=== PATIENT | female | born 1995 | race Caucasian/White ===

== ENCOUNTER → 2021-09-20 | Outpatient (CLI) | payer OTHER ==
--- NOTE | 2021-09-21 07:33 | US ---
EXAMINATION TYPE: US pelvic complete DATE OF EXAM: 09/20/2021 COMPARISON: NONE CLINICAL HISTORY: N91.2 AMENORRHEA. amenorrhea TECHNIQUE: Transabdominal (TA). Date of LMP: 7 months ago EXAM MEASUREMENTS: Uterus: 5.4 x 2.7 x 3.6 cm Endometrial Stripe: 0.7 cm Right Ovary: 2.9 x 1.9 x 1.5 cm Left Ovary: 2.8 x 1.8 x 2.0 cm 1. Uterus: Anteverted appears wnl 2. Endometrium: appears wnl 3. Right Ovary: follicles noted 4. Left Ovary: follicles noted 5. Bilateral Adnexa: wnl 6. Posterior cul-de-sac: wnl Anteverted uterus. Endometrium slightly thinned for secretory phase of menstrual cycle. Suboptimal st udy as transvaginal investigation not performed to better evaluate. IMPRESSION: As above.
== END | disposition home or self-care (01) ==
LOC: RADUSWWP 16:09
PROVIDERS: ATTEND Family Medicine
DX: N85.4 Malposition of uterus (principal); N91.2 Amenorrhea, unspecified
CPT/HCPCS: 76856

== ENCOUNTER → 2022-06-05 | Outpatient (CLI) | payer OTHER ==
--- NOTE | 2022-06-05 08:37 | US ---
EXAMINATION TYPE: US renal artery duplex complete DATE OF EXAM: 06/05/2022 COMPARISON: NONE CLINICAL HISTORY: 27-year-old female I10 ESSENTIAL HYPERTENSION. Pt has legal guardian who states [place] ontrolled HTN x many years technique: Multiple sonographic images of the kidneys are obtained. Color Doppler and spectral waveform analysis of the renal arteries. 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 RESISTANCE INDEX Right: 0.6 Left: Unable to obtain RA/AO RATIO (< 3.5 ) Right: 2.3 Left: Unable to obtain RA VELOCITY ( < 180 cm/s) Right: 263.7 Left: Unable to obtain Head Animal Keeper notes:Possible right renal artery stenosis. The left kidney appeared multicystic, large st cyst= 10.6 x 7.5 x 10.6 cm- unable to visualize renal tissue or vasculature to obtain blood flow IMPRESSION: 1. Increased peak systolic velocity right renal artery though with renal artery aortic ratio still be low the diagnostic threshold. Consider further CT or MR angiography assessment. Exam remains equivoca l for renal artery stenosis on the right. 2. 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
== END | disposition home or self-care (01) ==
LOC: RADUSWWP 06:53
PROVIDERS: ATTEND Family Medicine
DX: I70.1 Atherosclerosis of renal artery (principal); N28.1 Cyst of kidney, acquired; I10 Essential (primary) hypertension
CPT/HCPCS: 93975

== ENCOUNTER → 2022-07-10 | Outpatient (CLI) | payer OTHER ==
--- NOTE | 2022-07-10 16:29 | MR ---
MR angiogram of the abdomen with and without contrast HISTORY: R [id number] Multiplanar multisequence and postcontrast images obtained through the abdomen, patient received 10 c c Gadavist IV. Three-dimensional postprocessing was performed on an alternate workstation and reviewe d. Correlation to ultrasound dated 06/05/2022 Aorta shows no aneurysm. Celiac axis, superior mesenteric artery, common iliac, internal and external iliac arteries proximally are within normal limits. There is expected enhancement of the right kidne y, renal artery in the right shows no proximal stenosis. Left kidney is not seen to enhance. There is a diminutive left renal artery which courses in cephalad direction, possible capsular arteries enhan ce on the left. Left kidney is enlarged. IMPRESSION: Nonfunctioning left kidney possibly due to chronic marked hydronephrosis. Consider urolog y consult.
== END | disposition home or self-care (01) ==
LOC: RADMRIMAIN 10:30 → EEVIPCON 10:45
PROVIDERS: ATTEND Family Medicine
DX: R93.422 Abnormal radiologic findings on diagnostic imaging of left kidney (principal)
CPT/HCPCS: C8902; A9585; 74185

== ENCOUNTER → 2022-10-07 | Outpatient (CLI) | payer OTHER ==
[2022-10-07 14:40] LABS: African American GFR (CKD) 97.6 (60.0-200.0); Anion Gap 12.4 mmol/L (10.00-18.00); BUN/Creat Ratio 25.59 Ratio (12.00-20.00); Blood Urea Nitrogen 23.8 mg/dL (9.0-27.0); Calcium 10.3 mg/dL (8.7-10.3); Carbon Dioxide 22.2 mmol/L (20.0-27.5); Non-African American GFR(CKD) 84.2 (60.0-200.0); Potassium 3.5 mmol/L (3.5-5.5)
== END | disposition home or self-care (01) ==
LOC: LABWHC1 09:09
PROVIDERS: ATTEND Internal Medicine
DX: I10 Essential (primary) hypertension (principal)
CPT/HCPCS: 36415; 80048

== ENCOUNTER → 2022-10-30 | Outpatient (CLI) | payer OTHER ==
--- NOTE | 2022-10-30 18:00 | CT ---
EXAMINATION TYPE: CT abdomen pelvis wo/w con DATE OF EXAM: 10/30/2022 COMPARISON: None INDICATION: renal cyst DLP: 2951.2 mGycm, Automated exposure control for dose reduction was used. CONTRAST: 70 mL of Isovue 300. Study performed with Oral Contrast TECHNIQUE: Axial images were obtained from above the diaphragm to the pubic rami in the axial plane a t 5 mm thick sections. Reconstructed images are reviewed on the computer in the coronal plane. FINDINGS: Limited CT sections are obtained the lung bases. The lung bases are clear. CT ABDOMEN: Liver: Normal Spleen: Normal Pancreas: Normal Adrenal glands: The adrenal glands are normal. Gallbladder: Normal Kidneys: Left kidney is largely replaced by a large complex cyst. Very minimal rim of parenchymal tis selena remains present better visualized on the delayed images. Right kidney appears unremarkable withou t masses cyst or hydronephrosis. No hydroureter is evident. Aorta: Normal Inferior vena cava: Normal. CT PELVIS: Loops of bowel within the abdomen and pelvis are normal. There are loops of bowel which are incom pletely distended or lack oral contrast limiting their evaluation. Oral contrast extends to the dista l transverse colon. Appendix: Normal as visualized. Urinary bladder: Normal. Genitourinary structures: Uterus appears unremarkable in the right hemipelvis. Adnexal regions are no rmal. Osseous structures: No suspicious lytic or sclerotic lesions. IMPRESSIONS: 1. Left kidney is largely replaced with cysts with very little parenchymal tissue evident on postcon trast imaging.
== END | disposition home or self-care (01) ==
LOC: RADCTMAIN 11:21
PROVIDERS: ATTEND Internal Medicine
DX: N28.1 Cyst of kidney, acquired (principal); I10 Essential (primary) hypertension
CPT/HCPCS: 74178; Q9967 ×2

== ENCOUNTER → 2023-02-11 | Outpatient (CLI) | payer OTHER ==
--- NOTE | 2023-02-11 10:59 | CT ---
EXAMINATION TYPE: CT angio head DATE OF EXAM: 02/11/2023 COMPARISON: None HISTORY: 27-year-old female I10, headaches TECHNIQUE: Initial noncontrast CT head. Contiguous axial scanning of the head performed with IV Contr ast, patient injected with 100 mL of Isovue 370. Coronal/sagittal reconstructions performed. 3-D steven nstructions generated on a dedicated independent workstation. CT DLP: 1326.5 mGycm Automated exposure control for dose reduction was used. FINDINGS: No evidence for acute intracranial hemorrhage, acute ischemic change, mass, mass effect, midline shif t, or extra-axial fluid collection. No hydrocephalus. No effacement of cerebral sulci or basal subara chnoid cisterns. Boyce-white matter differentiation is maintained. Rightward nasal septal deviation. Paranasal sinuses and mastoid air cells are well pneumatized. Orbit s and globes are intact. After IV contrast administration we note a dominant left vertebral artery. Both vertebral and basilar arteries as well as the remainder of the posterior circulation are patent. The dural venous sinuses are patent. Both internal carotid arteries as well as the remainder of the anterior circulation are patent. IMPRESSION: NO INTRACRANIAL OCCLUSION, SIGNIFICANT STENOSIS, OR ANEURYSMAL CHANGES SEEN. NO ACUTE INTRACRANIAL AB NORMALITY.
== END | disposition home or self-care (01) ==
LOC: RADCTMAIN 08:59
PROVIDERS: ATTEND Internal Medicine
DX: I10 Essential (primary) hypertension (principal); N28.1 Cyst of kidney, acquired
CPT/HCPCS: 70496; Q9967

== ENCOUNTER → 2023-04-08 | Outpatient (CLI) | payer OTHER ==
[2023-04-08 16:33] LABS: Appearance,Urine Clear (Clear); Bilirubin,Urine Negative (Negative); Blood,Urine Negative (Negative); Color,Urine Dark Yellow (Yellow); Ketones,Urine Negative (Negative); Nitrite,Urine Negative (Negative); Specific Gravity,Urine 1.022 (1.001-1.030); Urobilinogen,Urine 0.2 E.U./DL
[2023-04-08 16:41] LABS: Bacteria,Urine 3+ (None Seen)
[2023-04-08 22:40] LABS: Calcium 11.1 mg/dL (8.7-10.3); Carbon Dioxide 26.1 mmol/L (21.6-31.8); Chloride 101 mmol/L (96-109); Glucose 153 mg/dL (70-110); Potassium 5.1 mmol/L (3.5-5.5); Sodium 139 mmol/L (135-145)
== END | disposition home or self-care (01) ==
LOC: LABWHC1 09:10
PROVIDERS: ATTEND Urology
DX: Z01.812 Encounter for preprocedural laboratory examination (principal); N13.30 Unspecified hydronephrosis; R31.29 Other microscopic hematuria
CPT/HCPCS: 36415; 80048; 81001; 85025; 87086

== ENCOUNTER → 2023-04-14 | Outpatient (CLI) | payer OTHER ==
[2023-04-14 16:39] LABS: Basophils # (A) 0.02 X 10*3/uL (0.00-0.10); Basophils % (A) 0.3 %; Eosinophils # (A) 0.16 X 10*3/uL (0.04-0.35); Eosinophils % (A) 2.2 %; HCT 48.7 % (37.2-46.3); Lymphocytes # (A) 2.21 X 10*3/uL (0.90-5.00); Lymphocytes % (A) 30.6 %; MCH 28.9 pg (27.0-32.0); MCHC 32.9 d/dL (32.0-37.0); MCV 87.9 FL (80.0-97.0); Mean Platelet Volume 11.4 FL (9.5-12.2); Monocytes % (A) 5.5 %; NRBC Per 100 WBC 0 X 10*3/uL (0.00-0.01); Neutrophils # (A) 4.41 X 10*3/uL (1.80-7.70); Neutrophils % (A) 61.1 %; Platelet Count 332 X 10*3/uL (140-440); RBC 5.54 X 10*6/uL (4.10-5.20); RDW 11.5 % (11.5-14.5); WBC 7.22 X 10*3/uL (4.50-10.00)
[2023-04-14 16:50] LABS: ALT 35 U/L (8-44); AST 28 U/L (13-35); Albumin 4.8 d/dL (3.8-4.9); Albumin/Globulin Ratio 1.33 Ratio (1.60-3.17); Alkaline Phosphatase 145 U/L (41-126); Blood Urea Nitrogen 22.3 mg/dL (9.0-27.0); Calcium 10.5 mg/dL (8.7-10.3); Carbon Dioxide 23.3 mmol/L (21.6-31.8); Chloride 100 mmol/L (96-109); Chol/HDL Ratio 4.14 Ratio; Globulin 3.6 d/dL (1.6-3.3); Glucose 122 mg/dL (70-110); LDL Cholesterol,Calculated 125.7 mg/dL (0.0-131.0); Potassium 4.4 mmol/L (3.5-5.5); Sodium 137 mmol/L (135-145); Total Bilirubin 0.7 mg/dL (0.3-1.2); Total Protein 8.4 d/dL (6.2-8.2)
== END | disposition home or self-care (01) ==
LOC: LABWHC1 08:25
PROVIDERS: ATTEND Urology
DX: Z01.812 Encounter for preprocedural laboratory examination (principal); I10 Essential (primary) hypertension; E78.2 Mixed hyperlipidemia; E55.9 Vitamin D deficiency, unspecified; N28.1 Cyst of kidney, acquired; R73.03 Prediabetes
CPT/HCPCS: 36415; 80053; 80061; 83036; 84443; 85025; 93005

== ENCOUNTER 2023-04-17 07:19 | Observation (INO) | payer OTHER ==
[2023-04-11 09:14] VITALS: BMI 38.2
[~2023-04-17 07:19] MED LIST: DEXAMETHASONE SOD PHOSPHATE 4 MG/ML 1 ML VIAL IV ONE; LIDOCAINE 1% (10MG/ML) FOR IV START INTRADERMA PRN; MIDAZOLAM 2 MG/2 ML VIAL IV PRN; ONDANSETRON 4 MG/2 ML VIAL IVP ONE
[2023-04-17] MEDS ORDERED: SCOPOLAMINE 1 MG/72 HR PATCH TRANSDERM ONE (08:15)
[2023-04-17 08:16] LABS: Glucose,Whole Blood 125 mg/dL (70-110)
[2023-04-17] MEDS ORDERED: MIDAZOLAM 2 MG/2 ML VIAL IVP ONE (08:37)
[2023-04-17] MEDS ORDERED: fentaNYL (PF) 50 MCG/1 ML VIAL IVP ONE (08:37)
--- NOTE | 2023-04-17 08:47 | P.ANPRN ---
Procedure Note - Anesthesia - Nerve Block Performed Bilateral Erector Spinae Single Time Out Performed: Yes Date of Procedure: 04/17/23 Procedure Start Time: 08:35 Procedure Stop Time: 08:46 Location of Patient: PreOp Indication: Acute Post-Operative Pain Sedation Type: Sedate with meaningful contact maintained Preparation: Sterile Prep Position: Sitting Needle Types: Pajunk Needle Gauge: 20 Ultrasound used to visualize needle placement: Yes Ultrasound used to observe medication spread: Yes Injectate: Other (see comment) (0.25% Ropivicaine 12 ml left, 12 ml right) Blood Aspirated: No Pain Paresthesia on Injection Noted: No Resistance on Injection: Normal Image Stored and Saved: Yes Events: Uneventful and Well Tolerated
[2023-04-17] MEDS: LACTATED RINGERS 1,000 ML IV SCH (08:54)
[2023-04-17] MEDS ORDERED: GLYCOPYRROLATE 0.2 MG/ML 2 ML VIAL ONE (09:08)
[2023-04-17] MEDS ORDERED: HYDROmorphone (PF) 1 MG/ML ONE (09:08)
[2023-04-17] MEDS ORDERED: ROCURONIUM 10 MG/ML (5 ML VIAL) IV ONE (09:08)
[2023-04-17] MEDS ORDERED: SODIUM CHLORIDE 0.9% (PF) 10 ML VIAL ONE (09:08)
[2023-04-17] MEDS ORDERED: KETOROLAC 15 MG/ML 1 ML VIAL ONE (09:08)
[2023-04-17] MEDS ORDERED: METOPROLOL TARTRATE 5 MG/5 ML VIAL IVP ONE (09:08)
[2023-04-17] MEDS ORDERED: MIDAZOLAM 2 MG/2 ML VIAL ONE (09:08)
[2023-04-17] MEDS ORDERED: PROPOFOL 10 MG/ML 20 ML VIAL IV ONE (09:08)
[2023-04-17] MEDS ORDERED: SUCCINYLCHOLINE CHLORIDE 200 MG/10 ML VIAL IV ONE (09:08)
[2023-04-17] MEDS ORDERED: fentaNYL (PF) 50 MCG/ML 2 ML AMP ONE (09:08)
[2023-04-17] MEDS ORDERED: ROPIVACAINE 5 MG/ML 30 ML VIAL ONE (09:08)
[2023-04-17] MEDS ORDERED: NEOSTIGMINE 1 MG/ML 10 ML VIAL ONE (09:08)
[2023-04-17] MEDS ORDERED: LACTATED RINGERS 1,000 ML IV ONE (09:11)
--- NOTE | 2023-04-17 09:25 | P.HPIHPCON ---
History of Present Illness H&P Date: 04/17/23 Chief Complaint: left renal cyst This is a 28-year-old female history of nonfunctioning multicystic left kidney, she is having symptomatic left flank pain. Discussed with her given it's a nonfunctioning kidney the option of left simple nephrectomy was discussed with her. Risk which include but not limited to bleeding, infection, injury to nearby organs. The risk of anesthesia was also discussed. she understood all the risk and agreed to proceed with a robotic simple nephrectomy Consent for Procedure: I have explained the operation/procedure to the patient, including the risks, benefits, side effects, alternative therapies (including not receiving the proposed treatment or service), the likelihood of the patient achieving his/her goals, and potential recuperation problems for the procedure/sedation/analgesia, as well as any blood products, if indicated. I also explained to the patient the risks, benefits and side effects of the alternatives, as well as the risks related to not receiving the proposed procedure, care, treatment, or services. Past Medical History Past Medical History: Hyperlipidemia, Hypertension Additional Past Medical History / Comment(s): "Mentally disabled - high functioning." Pre-diabetic. Poor vision, cannot see anything without glasses on. No menses in 2 yrs, "she just quit having them, has been checked out and not sure why." Has Nexplanon Implant. Frequent headaches. Patient was adopted from [facility], Tiffany think she probably has had kidney problem since . History of Any Multi-Drug Resistant Organisms: None Reported Past Surgical History: No Surgical Hx Reported Past Anesthesia/Blood Transfusion Reactions: No Reported Reaction Additional Past Anesthesia/Blood Transfusion Reaction / Comment(s): Family hx unknown, patient adopted from [facility]. Legal Guardian/Mother Sue Peacock states she would like to be with patient in Pre-Op but patient will be fine to go into the OR without her. Past Psychological History: Anxiety Additional Psychological History / Comment(s): Mentally diasabled - high functioning. "She just agrees with everything anyone says". Smoking Status: Never smoker Past Alcohol Use History: None Reported Past Drug Use History: None Reported - Past Family History Mother History Unknown: Yes Additional Family Medical History / Comment(s): Patient adopted from [facility], family hx unknown. Medications and Allergies Home Medications Medication Instructions Recorded Confirmed Type Atorvastatin [Lipitor] 10 mg PO HS 04/11/23 04/11/23 History Etonogestrel [Nexplanon] 68 mg SQ ONCE 04/11/23 04/11/23 History lisinopriL [Zestril] 10 mg PO QAM 04/11/23 04/17/23 History Allergies Allergy/AdvReac Type Severity Reaction Status Date / Time No Known Allergies Allergy Verified 04/11/23 08:50 Surgical - Exam Vital Signs Temp Pulse Resp BP Pulse Ox 97.9 F 72 16 119/78 97 04/17/23 07:44 04/17/23 07:44 04/17/23 07:44 04/17/23 07:44 04/17/23 07:44 - General no distress, no pain - Eyes normal ocular movement, no pale - ENT normal nares, normal mucosa - Respiratory normal expansion, normal respiratory effort Results - Labs Abnormal Lab Results - Last 24 Hours (Table) 04/17/23 Range/Units 08:15 POC Glucose (mg/dL) 125 H (70-110) mg/dL Assessment and Plan Assessment: OR for robotic simple nephrectomy on the left
[2023-04-17] MEDS ORDERED: ONDANSETRON 4 MG/2 ML VIAL IVP PRN (09:26)
[2023-04-17] MEDS ORDERED: ETONOGESTREL 68 MG SQ SCH (09:30)
[2023-04-17] MEDS ORDERED: BUPIVACAINE (PF) 0.5% 30 ML VIAL SQ ONE (09:45)
--- NOTE | 2023-04-17 12:33 | P.OP ---
Date of Procedure: 04/17/23 Preoperative Diagnosis: Left cystic kidney Postoperative Diagnosis: same Procedure(s) Performed: Robotic-assisted laparoscopic simple nephrectomy on the left Implants: none Anesthesia: MYRANDAA Surgeon: Francis Araujo Estimated Blood Loss (ml): 50 Pathology: other (left kidney) Condition: stable Disposition: PACU Indications for Procedure: This is a 28-year-old female history of nonfunctioning multicystic left kidney, she is having symptomatic left flank pain. Discussed with her given it's a nonfunctioning kidney the option of left simple nephrectomy was discussed with her. Risk which include but not limited to bleeding, infection, injury to near by organs. The risk of anesthesia was also discussed. she understood all the risk and agreed to proceed with a robotic simple nephrectomy Description of Procedure: The patient was taken to the operating room . General anesthesia was induced. She was prepped and draped in sterile fashion, she was placed in modified flank position . All pressure points were padded. The abdominal insufflation was achieved with the Veress needle. A 8 mm camera port was placed. Robotic trocars and respiratory assistant ports were placed under direct vision. The robot was docked into place. The colon was mobilized medially by incising along the white line of Toldt. Next the spleen and the pancrease were mobilized. Once the bowel, spleen and pancreas were mobilized. At this time the gonadal vessel was visualized. Once the gonadal vessel and ureter was visualized , next after the psoas plane was developed the ureter and gonadal vessel was retracted anteriorly off the psoas muscle. Dissection proceeded cranially towards the renal hilum. The upper pole attachments were dissected. Care was taken to safely mobilize the kidney free of all visceral structures.The renal vessels were dissected. At this point the renal vessels were exposed. Next the renal hilum was ligated using the vascular stapler. The adrenal gland was mobilized. Lateral and remaining kidney attachments were released. The ureter was dissected further distally. The ureter was ligated using the vascular stapler. The kidney was placed in an Endo Catch bag. Hemostatic agent were applied to the surgical field. The robot was then de-docked and the specimen was then removed by extending the respiratory assistant port. Fascia was closed with one layer using #1 Stratafix. Skin was closed with subcuticular sutures and dermabond. The patient was awoken from general anesthesia in stable condition. Please refer to the final pathology report for final diagnosis
[2023-04-17] MEDS: HYDROmorphone 0.5 MG/0.5 ML SYRINGE IVP PRN ×3 (12:52→13:16)
[2023-04-17] MEDS: D5-0.45% NACL WITH KCL 20MEQ/L 1,000 ML IV SCH ×2 (14:37→22:15)
[2023-04-17] MEDS: HYDROmorphone 1 MG/ML 1 ML SYRINGE IVP PRN ×2 (14:39→20:53)
[2023-04-17] MEDS: HEPARIN SODIUM,PORCINE/PF 5,000 UNIT/0.5 ML SYRINGE SQ SCH ×2 (16:32→23:54)
[2023-04-17] MEDS: KETOROLAC 15 MG/ML 1 ML VIAL IVP SCH ×2 (18:07→23:54)
[2023-04-17] MEDS ORDERED: ATORVASTATIN 10 MG TAB PO SCH (21:00)
[2023-04-18] MEDS: HYDROmorphone 1 MG/ML 1 ML SYRINGE IVP PRN ×4 (05:02→15:57)
[2023-04-18] MEDS: D5-0.45% NACL WITH KCL 20MEQ/L 1,000 ML IV SCH (05:35)
[2023-04-18] MEDS: KETOROLAC 15 MG/ML 1 ML VIAL IVP SCH ×2 (05:36→11:45)
[2023-04-18] MEDS: HEPARIN SODIUM,PORCINE/PF 5,000 UNIT/0.5 ML SYRINGE SQ SCH (08:48)
[2023-04-18] MEDS ORDERED: lisinopriL 10 MG TAB PO SCH (09:00)
[2023-04-18] MEDS: LACTATED RINGERS 1,000 ML IV SCH (09:02)
[2023-04-18 15:13] VITALS: BP 129/67; PULSE 79; RESP 18; TEMP 99
--- NOTE | 2023-04-19 14:04 | P.DS ---
Providers Date of admission: 04/17/23 13:32 Attending physician: Francis Araujo MD Primary care physician: [facility] Course: 28-year-old female history of a nonfunctioning left kidney underwent a robotic left simple nephrectomy on April 17. Please see op note dated April 17 for surgery detail. Patient was admitted to the hospital postoperatively. Miller catheter was removed on postop day #1. She was discharged home on postoperative day #1 at time of discharge she was tolerating a diet, ambulating, and pain was controlled Patient Condition at Discharge: Stable Plan - Discharge Summary Discharge Rx Participant: Yes New Discharge Prescriptions: New HYDROcodone/APAP 5-325MG [[place] 5-325] 1 tab PO Q6HR PRN 3 Days #12 tab PRN Reason: Pain Ketorolac [Toradol] 10 mg PO Q6HR PRN #15 tab PRN Reason: Pain No Action lisinopriL [Zestril] 10 mg PO QAM Atorvastatin [Lipitor] 10 mg PO HS Etonogestrel [Nexplanon] 68 mg SQ ONCE Discharge Medication List Atorvastatin [Lipitor] 10 mg PO HS 04/11/23 [History] Etonogestrel [Nexplanon] 68 mg SQ ONCE 04/11/23 [History] lisinopriL [Zestril] 10 mg PO QAM 04/11/23 [History] HYDROcodone/APAP 5-325MG [[place] 5-325] 1 tab PO Q6HR PRN 3 Days #12 tab 04/18/23 [Rx] Ketorolac [Toradol] 10 mg PO Q6HR PRN #15 tab 04/18/23 [Rx] Patient Instructions/Handouts: *Surgery [facility] - Scopalamine Patch Instructions, Nephrectomy (DC) Activity/Diet/Wound Care/Special Instructions: No heavy lifting or straining Use Toradol for pain, if still having pain despite the Toradol then can use [place] in addition You may shower no baths Discharge Disposition: HOME SELF-CARE
== END 2023-04-18 17:35 | disposition home or self-care (01) ==
LOC: OR 07:19 → 4SSUR 12:27 → OR 13:32
PROVIDERS: ADMIT Urology; ATTEND Urology
DX: Q61.9 Cystic kidney disease, unspecified (principal); G89.18 Other acute postprocedural pain; E78.5 Hyperlipidemia, unspecified; I10 Essential (primary) hypertension; R73.03 Prediabetes; Z79.899 Other long term (current) drug therapy
CPT/HCPCS: 50546; S2900; 64999; 81025; 86850; 86900; 86901; 88307

== ENCOUNTER 2023-04-24 13:16 | Observation (INO) | payer OTHER ==
[2023-04-24] MEDS ORDERED: HYDROmorphone 1 MG/ML 1 ML SYRINGE IVP STA ×2 (13:42→16:44)
[2023-04-24] MEDS ORDERED: FAMOTIDINE 20 MG/2 ML VIAL IV STA (13:42)
--- NOTE | 2023-04-24 13:51 | ED ---
General Adult HPI - General Chief complaint: Chest Pain Stated complaint: chest pain Time Seen by Provider: 04/24/23 13:36 Source: patient, EMS, RN notes reviewed, Caregiver Mode of arrival: EMS Limitations: no limitations - History of Present Illness Initial comments: Patient is a pleasant 28-year-old female presenting to the emergency department with family with concerns for chest discomfort. Patient did have left nephrectomy secondary to cysts last week. Patient did have some chest discomfort described as spasms 2 days ago that were short. Patient did have some yesterday as well. Patient has had 1 lasting over an hour now today. Discomfort is in her mid sternal chest. It does seem to radiate. Patient denies dyspnea. Patient has been reported as sweaty. Patient is slightly poor historian and foster mother helps provide history. - Related Data Home Medications Medication Instructions Recorded Confirmed Atorvastatin [Lipitor] 10 mg PO HS 04/11/23 04/24/23 Etonogestrel [Nexplanon] 68 mg SQ ONCE 04/11/23 04/24/23 lisinopriL [Zestril] 10 mg PO DAILY 04/24/23 04/24/23 Previous Rx's Medication Instructions Recorded HYDROcodone/APAP 5-325MG [[place] 1 tab PO Q6HR PRN 3 Days #12 tab 04/18/23 5-325] Ketorolac [Toradol] 10 mg PO Q6HR PRN #15 tab 04/18/23 Allergies Allergy/AdvReac Type Severity Reaction Status Date / Time No Known Allergies Allergy Verified 04/24/23 14:30 Review of Systems ROS Statement: Those systems with pertinent positive or pertinent negative responses have been documented in the HPI. ROS Other: All systems not noted in ROS Statement are negative. Constitutional: Denies: fever Eyes: Denies: eye pain ENT: Denies: ear pain Respiratory: Denies: cough, dyspnea Cardiovascular: Reports: as per HPI, chest pain Endocrine: Denies: fatigue Gastrointestinal: Denies: abdominal pain Genitourinary: Denies: dysuria Musculoskeletal: Denies: back pain Skin: Denies: rash Neurological: Denies: weakness Past Medical History Past Medical History: Hyperlipidemia, Hypertension Additional Past Medical History / Comment(s): "Mentally disabled - high functioning." Pre-diabetic. Poor vision, cannot see anything without glasses on. No menses in 2 yrs, "she just quit having them, has been checked out and not sure why." Has Nexplanon Implant. Frequent headaches. Patient was adopted from [facility], 'jaleesa think she probably has had kidney problem since . History of Any Multi-Drug Resistant Organisms: None Reported Past Surgical History: No Surgical Hx Reported Past Anesthesia/Blood Transfusion Reactions: No Reported Reaction Additional Past Anesthesia/Blood Transfusion Reaction / Comment(s): Family hx unknown, patient adopted from [facility]. Legal Guardian/Mother - Madonna states she would like to be with patient in Pre-Op but patient will be fine to go into the OR without her. Past Psychological History: Anxiety Smoking Status: Never smoker Past Alcohol Use History: None Reported Past Drug Use History: None Reported - Past Family History Mother History Unknown: Yes Additional Family Medical History / Comment(s): Patient adopted from [facility], family hx unknown. General Exam Limitations: no limitations General appearance: alert Head exam: Present: atraumatic, normocephalic Eye exam: Present: normal appearance Neck exam: Present: normal inspection Respiratory exam: Present: normal lung sounds bilaterally Cardiovascular Exam: Present: regular rate, normal rhythm Expanded Peripheral pulses: 2+: Radial (R), Radial (L), Dorsalis Pedis (R), Dorsalis Pedis (L) GI/Abdominal exam: Present: soft. Absent: tenderness Extremities exam: Present: normal inspection. Absent: pedal edema, calf tenderness Neurological exam: Present: alert. Absent: motor sensory deficit Psychiatric exam: Present: normal affect, normal mood Skin exam: Present: normal color Course Vital Signs 04/24/23 04/24/23 04/24/23 13:30 13:34 14:37 Temperature 98.0 F Pulse Rate 84 78 Pulse Rate [ 86 Pulse Oximetery ] Respiratory 22 21 Rate Blood Pressure 134/84 127/76 O2 Sat by Pulse 97 99 Oximetry 04/24/23 17:00 Temperature 98.5 F Pulse Rate 98 Pulse Rate [ Pulse Oximetery ] Respiratory 18 Rate Blood Pressure 113/64 O2 Sat by Pulse 100 Oximetry - Reevaluation(s) Reevaluation #1: 04/24/23 15:45 Case was discussed with nephrology, Dr. Wang who does recommend getting a CT of the chest with contrast for PE. 04/24/23 17:24 EKG #2 shows sinus rhythm rate 95. IN 135. QRS 84. QT 346. QTc 399. Normal axis. Normal QRS. No acute ST change. EKG Findings - EKG Results: EKG: interpreted by RIP (Neuro complex rhythm with some irregularity. Right axis.), normal QRS, normal ST/T Medical Decision Making - Medical Decision Making Was pt. sent in by a medical professional or institution (, [facility], [facility], urgent care, hospital, or fci...) When possible be specific @ -No Did you speak to anyone other than the patient for history (EMS, parent, family, police, friend...)? What history was obtained from this source @ -Majority of history comes from foster mother is patient does have history of mental retardation and is a poor historian Did you review nursing and triage notes (agree or disagree)? Why? @ -I reviewed and agree with nursing and triage notes Were old charts reviewed (outside hosp., previous admission, EMS record, old EKG, old radiological studies, urgent care reports/EKG's, fci records)? Report findings @ -Previous admission and surgery reports reviewed Differential Diagnosis (chest pain, altered mental status, abdominal pain women, abdominal pain men, vaginal bleeding, weakness, fever, dyspnea, syncope, headache, dizziness, GI bleed, back pain, seizure, CVA, palpatations, mental health, musculoskeletal)? @ -Differential Chest Pain: Stable Angina, Unstable Angina, STEMI, NSTEMI Aortic Dissection, Pneumothorax, Musculoskeletal, Esophageal Spasm GERD, Cholecystitis, Pancreatitis, Zoster, this is not meant to be an all-inclusive list. EKG interpreted by me (3pts min.). @ -As above X-rays interpreted by me (1pt min.). @ -Chest x-ray shows no acute process CT interpreted by me (1pt min.). @ -None done U/S interpreted by me (1pt. min.). @ -None done What testing was considered but not performed or refused? (CT, X-rays, U/S, labs)? Why? @ -None What meds were considered but not given or refused? Why? @ -None Did you discuss the management of the patient with other professionals (professionals i.e. , [facility], [facility], lab, RT, psych nurse, perinatal social worker, profiling machine operator, teacher, housing management officer, case planner)? Give summary @ -Case was discussed with Dr. Wang who does recommend admission with cardiac consult. Case also discussed with Dr. Ware, who will admit covering Dr. jakob Porter Was smoking cessation discussed for >3mins.? @ -No Was critical care preformed (if so, how long)? @ -No Were there social determinants of health that impacted care today? How? (Homelessness, low income, unemployed, alcoholism, drug addiction, transportation, low edu. Level, literacy, decrease access to med. care, correction, rehab)? @ -No Was there de-escalation of care discussed even if they declined (Discuss DNR or withdrawal of care, Hospice)? DNR status @ -No What co-morbidities impacted this encounter? (DM, HTN, Smoking, COPD, CAD, Cancer, CVA, ARF, Chemo, Hep., AIDS, mental health diagnosis, sleep apnea, morbid obesity)? @ -None Was patient admitted / discharged? Hospital course, mention meds given and route, prescriptions, significant lab abnormalities, going to OR and other pertinent info. @ -Patient reevaluated. Following Ativan and 2 doses of Dilaudid patient is saying to feel better. Undiagnosed new problem with uncertain prognosis? @ -No Drug Therapy requiring intensive monitoring for toxicity (Heparin, Nitro, Insulin, Cardizem)? @ -No Were any procedures done? @ -No Diagnosis/symptom? @ -Chest pain Acute, or Chronic, or Acute on Chronic? @ -Acute Uncomplicated (without systemic symptoms) or Complicated (systemic symptoms)? @ -default Side effects of treatment? @ -No Exacerbation, Progression, or Severe Exacerbation? @ -No Poses a threat to life or bodily function? How? (Chest pain, [place], [place], pneumonia, PE, COPD, DKA, ARF, appy, cholecystitis, CVA, Diverticulitis, Homicidal, Suicidal, threat to staff... and all critical care pts) @ -No - Lab Data Result diagrams: 04/24/23 13:46 04/24/23 13:46 Lab Results 04/24/23 04/24/23 04/24/23 Range/Units 13:46 13:46 13:46 WBC 9.0 (3.8-10.6) k/uL RBC 4.69 (3.80-5.40) m/uL Hgb 13.5 (11.4-16.0) gm/dL Hct 40.0 (34.0-46.0) % MCV 85.2 (80.0-100.0) fL MCH 28.8 (25.0-35.0) pg MCHC 33.7 (31.0-37.0) g/dL RDW 11.3 L (11.5-15.5) % Plt Count 352 (150-450) k/uL MPV 8.0 Neutrophils % 67 % Lymphocytes % 23 % Monocytes % 5 % Eosinophils % 3 % Basophils % 0 % Neutrophils # 6.0 (1.3-7.7) k/uL Lymphocytes # 2.0 (1.0-4.8) k/uL Monocytes # 0.5 (0-1.0) k/uL Eosinophils # 0.3 (0-0.7) k/uL Basophils # 0.0 (0-0.2) k/uL PT 9.3 (9.0-12.0) sec INR 0.9 (<1.2) APTT 19.9 L (22.0-30.0) sec D-Dimer (<0.60) mg/L FEU Sodium 135 L (137-145) mmol/L Potassium 4.4 (3.5-5.1) mmol/L Chloride 106 (98-107) mmol/L Carbon Dioxide 20 L (22-30) mmol/L Anion Gap 9 mmol/L BUN 30 H (7-17) mg/dL Creatinine 0.82 (0.52-1.04) mg/dL Est GFR (CKD-EPI)AfAm >90 (>60 ml/min/1.73 sqM) Est GFR (CKD-EPI)NonAf >90 (>60 ml/min/1.73 sqM) Glucose 123 H (74-99) mg/dL Calcium 9.6 (8.4-10.2) mg/dL Magnesium 1.8 (1.6-2.3) mg/dL Total Bilirubin 0.6 (0.2-1.3) mg/dL AST 45 H (14-36) U/L ALT 66 H (4-34) U/L Alkaline Phosphatase 145 H (38-126) U/L Troponin I (0.000-0.034) ng/mL Total Protein 7.2 (6.3-8.2) g/dL Albumin 3.9 (3.5-5.0) g/dL Amylase 90 (30-110) U/L Lipase 271 (23-300) U/L 04/24/23 04/24/23 Range/Units 13:46 13:51 WBC (3.8-10.6) k/uL RBC (3.80-5.40) m/uL Hgb (11.4-16.0) gm/dL Hct (34.0-46.0) % MCV (80.0-100.0) fL MCH (25.0-35.0) pg MCHC (31.0-37.0) g/dL RDW (11.5-15.5) % Plt Count (150-450) k/uL MPV Neutrophils % % Lymphocytes % % Monocytes % % Eosinophils % % Basophils % % Neutrophils # (1.3-7.7) k/uL Lymphocytes # (1.0-4.8) k/uL Monocytes # (0-1.0) k/uL Eosinophils # (0-0.7) k/uL Basophils # (0-0.2) k/uL PT (9.0-12.0) sec INR (<1.2) APTT (22.0-30.0) sec D-Dimer 10.43 H (<0.60) mg/L FEU Sodium (137-145) mmol/L Potassium (3.5-5.1) mmol/L Chloride (98-107) mmol/L Carbon Dioxide (22-30) mmol/L Anion Gap mmol/L BUN (7-17) mg/dL Creatinine (0.52-1.04) mg/dL Est GFR (CKD-EPI)AfAm (>60 ml/min/1.73 sqM) Est GFR (CKD-EPI)NonAf (>60 ml/min/1.73 sqM) Glucose (74-99) mg/dL Calcium (8.4-10.2) mg/dL Magnesium (1.6-2.3) mg/dL Total Bilirubin (0.2-1.3) mg/dL AST (14-36) U/L ALT (4-34) U/L Alkaline Phosphatase (38-126) U/L Troponin I <0.012 (0.000-0.034) ng/mL Total Protein (6.3-8.2) g/dL Albumin (3.5-5.0) g/dL Amylase (30-110) U/L Lipase (23-300) U/L Disposition Clinical Impression: Chest pain Disposition: ADMITTED IP TO THIS HOSP Is patient prescribed a controlled substance at d/c from ED?: No Referrals: Leonarda De La Cruz MD [Primary Care Provider] - 1-2 days Time of Disposition: 17:30
[2023-04-24 13:54] LABS: Basophils % (A) 0 %; Eosinophils # (A) 0.3 k/uL (0-0.7); Eosinophils % (A) 3 %; HGB 13.5 gm/dL (11.4-16.0); Lymphocytes % (A) 23 %; MCH 28.8 pg (25.0-35.0); MCHC 33.7 g/dL (31.0-37.0); MCV 85.2 fL (80.0-100.0); Monocytes # (A) 0.5 k/uL (0-1.0); Monocytes % (A) 5 %; Neutrophils % (A) 67 %; Platelet Count 352 k/uL (150-450); RBC 4.69 m/uL (3.80-5.40); RDW 11.3 % (11.5-15.5)
[2023-04-24 14:15] LABS: INR 0.9 (<1.2); Prothrombin Time 9.3 sec (9.0-12.0)
--- NOTE | 2023-04-24 14:15 | XR ---
EXAMINATION TYPE: XR chest 2V DATE OF EXAM: 04/24/2023 2:07 PM COMPARISON: None TECHNIQUE: XR chest 2V Frontal and lateral views of the chest. CLINICAL INDICATION:Female, 28 years old with history of Chest Pain; FINDINGS: Lungs/Pleura: There is no evidence of pleural effusion, focal consolidation, or pneumothorax. Pulmonary vascularity: Unremarkable. Heart/mediastinum: Cardiomediastinal silhouette is unremarkable. Musculoskeletal: No acute osseous pathology. IMPRESSION: No acute cardiopulmonary disease/process.
[2023-04-24 14:18] LABS: ALT 66 U/L (4-34); AST 45 U/L (14-36); African American GFR (CKD) >90 (>60 ml/min/1.73 sqM); Albumin 3.9 g/dL (3.5-5.0); Alkaline Phosphatase 145 U/L (38-126); Amylase 90 U/L (30-110); Anion Gap 9 mmol/L; Blood Urea Nitrogen 30 mg/dL (7-17); Calcium 9.6 mg/dL (8.4-10.2); Carbon Dioxide 20 mmol/L (22-30); Chloride 106 mmol/L (98-107); Glucose 123 mg/dL (74-99); Lipase 271 U/L (23-300); Magnesium 1.8 mg/dL (1.6-2.3); Non-African American GFR(CKD) >90 (>60 ml/min/1.73 sqM); Potassium 4.4 mmol/L (3.5-5.1); Sodium 135 mmol/L (137-145); Total Bilirubin 0.6 mg/dL (0.2-1.3); Total Protein 7.2 g/dL (6.3-8.2)
[2023-04-24] MEDS ORDERED: LORazepam 2 MG/ML INJ IV STA ×2 (14:54→18:40)
[2023-04-24 15:02] LABS: Partial Thromboplastin Time 19.9 sec (22.0-30.0)
--- NOTE | 2023-04-24 16:41 | CT ---
EXAMINATION TYPE: CT abdomen pelvis w con CT DLP: 1543 mGycm, Automated exposure control for dose reduction was used. DATE OF EXAM: 04/24/2023 4:27 PM COMPARISON: CT abdomen pelvis most recent from 10/30/2022 CLINICAL INDICATION:Female, 28 years old with history of cp; chest pain, recent nephrectomy. TECHNIQUE: Axial CT of the abdomen and pelvis. Sagittal and coronal reformats were created on a [employer] workstation. Contrast used:100 mL of Isovue 370 with IV Contrast, (none if empty) Oral contrast used: without Oral Contrast (none if empty) FINDINGS: LOWER CHEST: Unremarkable ABDOMEN LIVER: Unremarkable GALLBLADDER AND BILE DUCTS: Unremarkable. PANCREAS: Unremarkable. SPLEEN: Unremarkable. ADRENAL GLANDS: Unremarkable. KIDNEYS AND URETERS: Post nephrectomy changes with fluid collection in the left nephrectomy bed which appears simple measuring 4.6 x 3.9 x 4.9 cm PELVIS BLADDER: Unremarkable REPRODUCTIVE: Unremarkable. ABDOMEN & PELVIS STOMACH AND BOWEL: No evidence of bowel obstruction. PERITONEUM/RETROPERITONEUM: Trace pneumoperitoneum noted scattered in the nephrectomy bed. VASCULATURE: No evidence of aortic aneurysm. MUSCULOSKELETAL: No acute osseous abnormalities LYMPH NODES: No gross evidence for lymphadenopathy. SOFT TISSUE/ABDOMINAL WALL: Unremarkable IMPRESSION: 1. Left nephrectomy changes with nephrectomy bed simple density fluid collection. Findings likely re presents seroma superimposed infection is not entirely excluded but felt to be less likely. Correlate with serum markers for superimposed infection. 2. There is some postsurgical changes anterior abdominal wall also present. No organizing fluid jaron ection anterior abdominal wall.
[2023-04-24] MEDS ORDERED: NITROGLYCERIN SL TABS 0.4 MG TAB SUBLINGUAL PRN (17:30)
--- NOTE | 2023-04-24 17:52 | CT ---
EXAMINATION TYPE: CT angio chest CT DLP: 347.2 mGycm, Automated exposure control for dose reduction was used. DATE OF EXAM: 04/24/2023 4:27 PM COMPARISON: None CLINICAL INDICATION:Female, 28 years old with history of cp, dyspnea; chest pain TECHNIQUE/CONTRAST: CTA scan of the thorax is performed with IV Contrast, patient injected with 100 mL of Isovue 370, pul monary embolism protocol. MIP images are created and reviewed these [facility] FINDINGS: Pulmonary Artery: There is no evidence for a central filling defect within the pulmonary vasculature to suggest acute pulmonary embolism. Limited evaluation of the segmental and subsegmental branches se condary to bolus timing. The pulmonary artery is of normal size. Lungs/Pleura: No evidence of focal consolidation, pleural effusion or pneumothorax. Airway: Large airways are patent. Heart: Heart is within normal limits for size. Vasculature: No evidence of aortic aneurysm. Mediastinum: No gross evidence of adenopathy. Musculoskeletal: No acute osseous abnormalities Soft Tissues: Unremarkable. Lower neck: No significant findings. Upper Abdomen: No significant findings. IMPRESSION: No evidence of central pulmonary embolism. Limited evaluation of the segmental and subsegmental branc hes.
[2023-04-24] MEDS ORDERED: ETODOLAC 400 MG TAB PO PRN (20:25)
[2023-04-24] MEDS: ATORVASTATIN 10 MG TAB PO SCH (21:05)
[2023-04-25] MEDS: MORPHINE SULFATE 4 MG/ML SYRINGE IV PRN ×3 (03:39→15:09)
--- NOTE | 2023-04-25 07:46 | P.GSCN ---
History of Present Illness Consult date: 04/25/23 History of present illness: 28 tono female who 1 week ago underwent a left nephrectomy by dr esparza for a cystic nephroma is admitted with chest pain of indeterminate etiology. She had a negative ct for pe. her ct shows some fluid in the postoperative bed which is to be expected. SHe is afebrile and her wbc is 9k. The patient has central chest pain. Etiology at this point time appears not to be urologic. Review of Systems All systems: negative - Constitutional Denies fever, Denies weight loss - EENT Eyes: denies blurred vision Ears, nose, mouth and throat: Denies dysphagia - Cardiovascular Denies chest pain, Denies shortness of breath - Respiratory Denies cough, Denies 7 - Gastrointestinal Reports as per HPI - Genitourinary Genitourinary: Denies dysuria, Denies hematuria - Integumentary Denies rash, Denies unusual bruising - Neurological Denies headaches, Denies syncope - Hematologic/Lymphatic Denies easy bleeding, Denies easy bruising Past Medical History Past Medical History: Hyperlipidemia, Hypertension Additional Past Medical History / Comment(s): "Mentally disabled - high functioning." Pre-diabetic. Poor vision, cannot see anything without glasses on. No menses in 2 yrs, "she just quit having them, has been checked out and not sure why." Has Nexplanon Implant. Frequent headaches. Patient was adopted from [facility], 'jaleesa think she probably has had kidney problem since . History of Any Multi-Drug Resistant Organisms: None Reported Past Surgical History: No Surgical Hx Reported Past Anesthesia/Blood Transfusion Reactions: No Reported Reaction Additional Past Anesthesia/Blood Transfusion Reaction / Comm: Family hx unknown, patient adopted from [facility]. Legal Guardian/Mother Sue Peacock states she would like to be with patient in Pre-Op but patient will be fine to go into the OR without her. Past Psychological History: Anxiety Additional Psychological History / Comment(s): Mentally diasabled - high functioning. "She just agrees with everything anyone says". Smoking Status: Never smoker Past Alcohol Use History: None Reported Past Drug Use History: None Reported - Past Family History Mother History Unknown: Yes Additional Family Medical History / Comment(s): Patient adopted from [facility], family hx unknown. Medications and Allergies Home Medications Medication Instructions Recorded Confirmed Type Atorvastatin [Lipitor] 10 mg PO HS 04/11/23 04/24/23 History Etonogestrel [Nexplanon] 68 mg SQ ONCE 04/11/23 04/24/23 History HYDROcodone/APAP 5-325MG [[place] 1 tab PO Q6HR PRN 3 Days #12 tab 04/18/23 04/24/23 Rx 5-325] Ketorolac [Toradol] 10 mg PO Q6HR PRN #15 tab 04/18/23 04/24/23 Rx lisinopriL [Zestril] 10 mg PO DAILY 04/24/23 04/24/23 History Allergies Allergy/AdvReac Type Severity Reaction Status Date / Time No Known Allergies Allergy Verified 04/24/23 14:30 Surgical - Exam Vital Signs Temp Pulse Resp BP Pulse Ox 98.0 F 84 22 134/84 97 04/24/23 13:30 04/24/23 13:30 04/24/23 13:30 04/24/23 13:30 04/24/23 13:30 - General well developed, well nourished, no distress - ENT no hearing loss - Neck no masses - Respiratory normal respiratory effort - Cardiovascular Rhythm: regular - Abdomen Abdomen: soft, non tender - Musculoskeletal normal posture Results - Labs 04/24/23 13:46 04/24/23 13:46 Abnormal Lab Results - Last 24 Hours (Table) 04/24/23 04/24/23 04/24/23 Range/Units 13:46 13:46 13:46 RDW 11.3 L (11.5-15.5) % APTT 19.9 L (22.0-30.0) sec D-Dimer (<0.60) mg/L FEU Sodium 135 L (137-145) mmol/L Carbon Dioxide 20 L (22-30) mmol/L BUN 30 H (7-17) mg/dL Glucose 123 H (74-99) mg/dL AST 45 H (14-36) U/L ALT 66 H (4-34) U/L Alkaline Phosphatase 145 H (38-126) U/L 04/24/23 Range/Units 13:51 RDW (11.5-15.5) % APTT (22.0-30.0) sec D-Dimer 10.43 H (<0.60) mg/L FEU Sodium (137-145) mmol/L Carbon Dioxide (22-30) mmol/L BUN (7-17) mg/dL Glucose (74-99) mg/dL AST (14-36) U/L ALT (4-34) U/L Alkaline Phosphatase (38-126) U/L Diabetes panel 04/24/23 Range/Units 13:46 Sodium 135 L (137-145) mmol/L Potassium 4.4 (3.5-5.1) mmol/L Chloride 106 (98-107) mmol/L Carbon Dioxide 20 L (22-30) mmol/L BUN 30 H (7-17) mg/dL Creatinine 0.82 (0.52-1.04) mg/dL Glucose 123 H (74-99) mg/dL Calcium 9.6 (8.4-10.2) mg/dL AST 45 H (14-36) U/L ALT 66 H (4-34) U/L Alkaline Phosphatase 145 H (38-126) U/L Total Protein 7.2 (6.3-8.2) g/dL Albumin 3.9 (3.5-5.0) g/dL Calcium panel 04/24/23 Range/Units 13:46 Calcium 9.6 (8.4-10.2) mg/dL Albumin 3.9 (3.5-5.0) g/dL Pituitary panel 04/24/23 Range/Units 13:46 Sodium 135 L (137-145) mmol/L Potassium 4.4 (3.5-5.1) mmol/L Chloride 106 (98-107) mmol/L Carbon Dioxide 20 L (22-30) mmol/L BUN 30 H (7-17) mg/dL Creatinine 0.82 (0.52-1.04) mg/dL Glucose 123 H (74-99) mg/dL Calcium 9.6 (8.4-10.2) mg/dL Adrenal panel 04/24/23 Range/Units 13:46 Sodium 135 L (137-145) mmol/L Potassium 4.4 (3.5-5.1) mmol/L Chloride 106 (98-107) mmol/L Carbon Dioxide 20 L (22-30) mmol/L BUN 30 H (7-17) mg/dL Creatinine 0.82 (0.52-1.04) mg/dL Glucose 123 H (74-99) mg/dL Calcium 9.6 (8.4-10.2) mg/dL Total Bilirubin 0.6 (0.2-1.3) mg/dL AST 45 H (14-36) U/L ALT 66 H (4-34) U/L Alkaline Phosphatase 145 H (38-126) U/L Total Protein 7.2 (6.3-8.2) g/dL Albumin 3.9 (3.5-5.0) g/dL - Imaging CT scan - abdomen: report reviewed, image reviewed CT scan - pelvis: report reviewed, image reviewed Assessment and Plan Assessment: Impression: Status post left nephrectomy, supple. Chest pain indeterminate etiology. Recommendations: I do not have an immediate cause for this pain from a urologic standpoint. The pain is central and mid sternum. There is nothing in the ET scan in the surgical field that seems to be contributing to this. There is no pulmonary embolus or pneumonia. We'll continue to follow this patient.
[2023-04-25] MEDS: lisinopriL 10 MG TAB PO SCH (09:48)
[2023-04-25 09:52] LABS: Chol/HDL Ratio 4.36 Ratio; LDL Cholesterol,Calculated 103.2 mg/dL (0.0-131.0)
--- NOTE | 2023-04-25 11:00 | P.CRDCN ---
History of Present Illness History of present illness: HISTORY OF PRESENT ILLNESS: This is a 28-year-old female with a past medical history significant for hypertension and hyperlipidemia. Patient does not follow with a district plant engineer. Patient used to follow with Dr. Perez but has not followed with a district plant engineer since he retired. We have been asked to see the patient in consultation for chest pain. Patient examined at the bedside. Patient's family is present. Patient recently underwent left nephrectomy secondary to cystic nephroma. Patient presented to the hospital with a chief complaint of chest pain. She states that she has been having chest pain for the past couple days. She states like she is being stabbed with a knife in her chest with radiation of the pain to her back. The patient has pain with chest wall palpation. She denies worsening pain with movement. The patient is expressing chest pain during the time of examination with jerking movements of her lower extremities. Repeat EKG performed at the time of patient having chest pain is negative for ischemia * EKG reveals sinus mechanism with no signs of acute ischemia * Chest xray negative for acute process * Chest CTA: Negative for PE * Laboratory data: WBC 9.0. Hemoglobin 13.5. Platelet count 352. D-dimer 10.43. Sodium 135. BUN 30. Creatinine 0.82. Troponin negative 3 * Current home cardiac medications include Lipitor 10 mg at night and lisinopril 10 mg daily REVIEW OF SYSTEMS: At the time of my exam: CONSTITUTIONAL: Denies fever or chills. HEENT: Denies blurred vision, vision changes, or eye pain. Denies hemoptysis CARDIOVASCULAR: Denies chest pain. Denies orthopnea. Denies PND. Denies palpitations RESPIRATORY: Denies shortness of breath. GASTROINTESTINAL: Denies abdominal pain. Denies nausea or vomiting. HEMATOLOGIC: Denies bleeding disorders. GENITOURINARY: Denies any blood in urine. SKIN: Denies pruitis. Denies rash. PHYSICAL EXAM: VITAL SIGNS: Reviewed. GENERAL: Well-developed in no acute distress. HEENT: Head is normocephalic. Pupils are equal, round. Sclerae anicteric. Mucous membranes of the mouth are moist. Neck supple. No JVD or thyromegaly LUNGS: Respirations even and unlabored. Lungs essentially clear to auscultation bilaterally. HEART: Regular rate and rhythm. S1 and S2 heard. ABDOMEN: Soft. Nondistended. Nontender. EXTREMITIES: Normal range of motion. No clubbing or cyanosis. Peripheral pulses intact. No lower extremity edema NEUROLOGIC: Awake and alert. Oriented x 3. ASSESSMENT: Chest pain, atypical, troponin negative 3 Hypertension Hyperlipidemia Recent left nephrectomy secondary to cystic nephroma PLAN: An acute coronary event has been ruled out Resume home cardiac medications No need to obtain echo per Dr. Corinna Goodman from a cardiac standpoint We will sign off. Please reconsult if needed Nurse practitioner note has been reviewed by physician. Signing provider agrees with the documented findings, assessment, and plan of care. Past Medical History Past Medical History: Hyperlipidemia, Hypertension Additional Past Medical History / Comment(s): "Mentally disabled - high functioning." Pre-diabetic. Poor vision, cannot see anything without glasses on. No menses in 2 yrs, "she just quit having them, has been checked out and not sure why." Has Nexplanon Implant. Frequent headaches. Patient was adopted from [facility], 'jaleesa think she probably has had kidney problem since . History of Any Multi-Drug Resistant Organisms: None Reported Past Surgical History: No Surgical Hx Reported Past Anesthesia/Blood Transfusion Reactions: No Reported Reaction Additional Past Anesthesia/Blood Transfusion Reaction / Comment(s): Family hx unknown, patient adopted from [facility]. Legal Guardian/Mother - Madonna states she would like to be with patient in Pre-Op but patient will be fine to go into the OR without her. Past Psychological History: Anxiety Additional Psychological History / Comment(s): Mentally diasabled - high functioning. "She just agrees with everything anyone says". Smoking Status: Never smoker Past Alcohol Use History: None Reported Past Drug Use History: None Reported - Past Family History Mother History Unknown: Yes Additional Family Medical History / Comment(s): Patient adopted from [facility], family hx unknown. Medications and Allergies Home Medications Medication Instructions Recorded Confirmed Type Atorvastatin [Lipitor] 10 mg PO HS 04/11/23 04/24/23 History Etonogestrel [Nexplanon] 68 mg SQ ONCE 04/11/23 04/24/23 History HYDROcodone/APAP 5-325MG [[place] 1 tab PO Q6HR PRN 3 Days #12 tab 04/18/23 04/24/23 Rx 5-325] Ketorolac [Toradol] 10 mg PO Q6HR PRN #15 tab 04/18/23 04/24/23 Rx lisinopriL [Zestril] 10 mg PO DAILY 04/24/23 04/24/23 History Allergies Allergy/AdvReac Type Severity Reaction Status Date / Time No Known Allergies Allergy Verified 04/24/23 14:30 Physical Exam Vitals: Vital Signs Temp Pulse Pulse Resp BP BP Pulse Ox 04/25/23 03:19 97.5 F L 107 H 16 125/83 98 04/25/23 02:53 89 18 124/81 99 04/25/23 00:03 92 17 117/66 97 04/24/23 23:04 98 18 113/62 95 04/24/23 22:04 98.6 F 100 17 109/67 97 04/24/23 21:13 113 H 19 104/74 100 04/24/23 20:15 105 H 17 114/84 100 04/24/23 19:06 107 H 18 106/65 95 04/24/23 18:40 92 17 129/76 04/24/23 18:03 109 H 17 110/66 97 04/24/23 17:00 98.5 F 98 18 113/64 100 04/24/23 14:37 78 21 127/76 99 04/24/23 13:34 86 04/24/23 13:30 98.0 F 84 22 134/84 97 Intake and Output 04/24/23 04/25/23 04/25/23 22:59 06:59 14:59 Other: # Voids 1 Weight 100.698 kg Results 04/24/23 13:46 04/24/23 13:46 Cardiac Enzymes 04/24/23 04/24/23 04/24/23 Range/Units 13:46 13:46 18:36 AST 45 H (14-36) U/L Troponin I <0.012 <0.012 (0.000-0.034) ng/mL 04/24/23 Range/Units 21:10 AST (14-36) U/L Troponin I <0.012 (0.000-0.034) ng/mL Coagulation 04/24/23 Range/Units 13:46 PT 9.3 (9.0-12.0) sec APTT 19.9 L (22.0-30.0) sec CBC 04/24/23 Range/Units 13:46 WBC 9.0 (3.8-10.6) k/uL RBC 4.69 (3.80-5.40) m/uL Hgb 13.5 (11.4-16.0) gm/dL Hct 40.0 (34.0-46.0) % Plt Count 352 (150-450) k/uL Comprehensive Metabolic Panel 04/24/23 Range/Units 13:46 Sodium 135 L (137-145) mmol/L Potassium 4.4 (3.5-5.1) mmol/L Chloride 106 (98-107) mmol/L Carbon Dioxide 20 L (22-30) mmol/L BUN 30 H (7-17) mg/dL Creatinine 0.82 (0.52-1.04) mg/dL Glucose 123 H (74-99) mg/dL Calcium 9.6 (8.4-10.2) mg/dL AST 45 H (14-36) U/L ALT 66 H (4-34) U/L Alkaline Phosphatase 145 H (38-126) U/L Total Protein 7.2 (6.3-8.2) g/dL Albumin 3.9 (3.5-5.0) g/dL Current Medications Generic Name Dose Route Start Last Admin Trade Name Freq PRN Reason Stop Dose Admin Hydrocodone Bitart/Acetaminophen 1 each 04/24/23 20:25 Hydrocodone/Apap 5-325mg 1 Each Tab PO Q6HR PRN Pain Atorvastatin Calcium 10 mg 04/24/23 21:00 04/24/23 21:05 Atorvastatin 10 Mg Tab PO 10 mg HS SHERLYN Administration Etodolac 400 mg 04/24/23 20:25 Etodolac 400 Mg Tab PO TID PRN Pain Lisinopril 10 mg 04/25/23 09:00 Lisinopril 10 Mg Tab PO DAILY SHERLYN Morphine Sulfate 4 mg 04/24/23 17:30 04/25/23 03:39 Morphine Sulfate 4 Mg/Ml Syringe IV 4 mg Q5M PRN Administration Chest Pain Nitroglycerin 0.4 mg 04/24/23 17:30 04/24/23 18:45 Nitroglycerin Sl Tabs 0.4 Mg Tab SUBLINGUAL 0.4 mg Q5M PRN Administration Chest Pain Intake and Output 07/04/1104/25/23 04/25/23 22:59 06:59 14:59 Other: # Voids 1 Weight 100.698 kg 04/24/23 13:46 04/24/23 13:46
[2023-04-25] MEDS: HYDROcodone/APAP 5-325MG 1 EACH TAB PO PRN ×2 (11:04→16:37)
--- NOTE | 2023-04-25 11:14 | CA ---
Transthoracic Echo Report Name: Christie Hua Age: 28 Gender: F : 1995 Exam Date: 04/25/2023 09:38 Exam Location: [place] [facility] Ht (in): 64 Wt (lb): 222 Ordering Physician: Deepthi Stockton Attending/Referring Phys: Francis Araujo MD Filter Pulp Washer Johanna Perrin [facility] Procedure CPT: Indications: LV function, CP Cardiac Hx: Technical Quality: Fair Contrast 1: Total Dose (mL): Contrast 2: Total Dose (mL): MEASUREMENTS (Male / Female) Normal Values 2D ECHO LV Diastolic Diameter PLAX 4.2 cm 4.2 - 5.9 / 3.9 - 5.3 cm LV Systolic Diameter PLAX 2.6 cm IVS Diastolic Thickness 0.8 cm 0.6 - 1.0 / 0.6 - 0.9 cm LVPW Diastolic Thickness 0.8 cm 0.6 - 1.0 / 0.6 - 0.9 cm LV Relative Wall Thickness 0.4 Ascending Aorta Diameter 2.3 cm M-MODE Aortic Root Diameter MM 2.3 cm LA Systolic Diameter MM 3.1 cm LA Ao Ratio MM 1.3 AV Cusp Separation MM 1.7 cm DOPPLER AV Peak Velocity 184.7 cm/s AV Peak Gradient 13.6 mmHg AV Mean Velocity 128.2 cm/s AV Mean Gradient 7.4 mmHg AV Velocity Time Integral 29.7 cm LVOT Peak Velocity 148.9 cm/s LVOT Peak Gradient 8.9 mmHg LVOT Velocity Time Integral 25.8 cm Mitral E Point Velocity 88.2 cm/s Mitral A Point Velocity 107.2 cm/s Mitral E to A Ratio 0.8 MV Deceleration Time 179.1 ms LV E' Lateral Velocity 11.1 cm/s Mitral E to LV E' Lateral Ratio 8.0 LV E' Septal Velocity 10.7 cm/s Mitral E to LV E' Septal Ratio 8.2 Right Atrial Pressure 3.0 mmHg FINDINGS Left Ventricle Normal left ventricular size, wall thickness, systolic function with no obvious regional wall motion abnormalities. The ejection fraction is visually estimated at 55-60%. Right Ventricle The right ventricle is normal in size and function. Right Atrium The right atrium is normal in size. Left Atrium The left atrium is normal in size. Mitral Valve Structurally normal mitral valve without significant stenosis or prolapse. There is no mitral regurgitation. Aortic Valve Structurally normal aortic valve without significant sclerosis or stenosis. There is no aortic regurgitation. Tricuspid Valve Structurally normal tricuspid valve without significant stenosis. Pulmonary artery systolic pressure is normal. Pulmonic Valve Structurally normal pulmonic valve without significant stenosis. Trace pulmonic regurgitation. Pericardium Normal pericardium without effusion. Aorta Normal aortic root dimension. CONCLUSIONS Normal LV size and systolic function Previewed by: Dr. Korey Weinstein MD (Electronically Signed) Final Date: 25 April 2023 11:13
[2023-04-25] MEDS: CYCLOBENZAPRINE 5 MG TAB PO PRN (18:08)
[2023-04-25] MEDS: ATORVASTATIN 10 MG TAB PO SCH (20:13)
[2023-04-26] MEDS: CYCLOBENZAPRINE 5 MG TAB PO PRN ×2 (05:21→20:51)
[2023-04-26] MEDS: lisinopriL 10 MG TAB PO SCH (08:01)
[2023-04-26] MEDS: HYDROcodone/APAP 5-325MG 1 EACH TAB PO PRN ×3 (08:01→20:05)
[2023-04-26 09:08] LABS: Basophils # (A) 0.02 X 10*3/uL (0.00-0.10); Basophils % (A) 0.3 %; Eosinophils # (A) 0.21 X 10*3/uL (0.04-0.35); HCT 40.1 % (37.2-46.3); HGB 12.9 d/dL (12.0-15.0); Lymphocytes # (A) 1.79 X 10*3/uL (0.90-5.00); Lymphocytes % (A) 25.5 %; MCH 28.2 pg (27.0-32.0); MCHC 32.2 d/dL (32.0-37.0); MCV 87.7 FL (80.0-97.0); Mean Platelet Volume 10.4 FL (9.5-12.2); Monocytes # (A) 0.63 X 10*3/uL (0.20-1.00); NRBC Per 100 WBC 0 X 10*3/uL (0.00-0.01); Neutrophils # (A) 4.35 X 10*3/uL (1.80-7.70); Neutrophils % (A) 61.8 %; Platelet Count 339 X 10*3/uL (140-440); RBC 4.57 X 10*6/uL (4.10-5.20); RDW 11.1 % (11.5-14.5); WBC 7.03 X 10*3/uL (4.50-10.00)
[2023-04-26 09:19] LABS: ALT 50 U/L (8-44); AST 28 U/L (13-35); Albumin 3.9 d/dL (3.8-4.9); Alkaline Phosphatase 132 U/L (41-126); BUN/Creat Ratio 22.89 Ratio (12.00-20.00); Blood Urea Nitrogen 20.6 mg/dL (9.0-27.0); Calcium 9.9 mg/dL (8.7-10.3); Carbon Dioxide 22.5 mmol/L (21.6-31.8); Chloride 104 mmol/L (96-109); Glucose 122 mg/dL (70-110); Potassium 4.8 mmol/L (3.5-5.5); Sodium 137 mmol/L (135-145); Total Bilirubin 0.4 mg/dL (0.3-1.2); Total Protein 6.9 d/dL (6.2-8.2)
--- NOTE | 2023-04-26 09:21 | P.PN ---
Subjective Progress Note Date: 04/26/23 The patient is in the hospital post surgical. She has midsternal discomfort. This does not appear to have any relationship to her left simple nephrectomy. She appears comfortable to me. Objective - Vital Signs Vital signs: Vital Signs Temp 98 F 04/26/23 07:00 Pulse 85 04/26/23 07:00 Resp 18 04/26/23 07:00 BP 114/75 04/26/23 07:00 Pulse Ox 96 04/26/23 07:00 FiO2 Intake & Output 04/25/23 04/26/23 04/26/23 18:59 06:59 18:59 Intake Total 360 222 Balance 360 222 Intake: Oral 360 222 Other: # Voids 2 1 # Bowel Movements 0 - Labs CBC & Chem 7: 04/26/23 05:54 04/26/23 05:54 Labs: Abnormal Lab Results - Last 24 Hours (Table) 04/24/23 04/26/23 04/26/23 Range/Units 23:14 05:54 05:54 RDW 11.1 L (11.5-14.5) % BUN/Creatinine Ratio 22.89 H (12.00-20.00) Ratio Glucose 122 H (70-110) mg/dL ALT 50 H (8-44) U/L Alkaline Phosphatase 132 H (41-126) U/L C-Reactive Protein 1.90 H (0.00-0.80) mg/dL Albumin/Globulin Ratio 1.30 L (1.60-3.17) Ratio Triglycerides 170.00 H (0.00-149.00) mg/dL Assessment and Plan Assessment: Impression: Mid chest pain of indeterminate etiology. Recommendations: The mother questions whether there could be some neurologic component to this. She wonders whether she may have lead poisoning. A neurological consultation is in order. There is nothing urologic that I can offer. She seems to be stable from her post simple nephrectomy. She should follow-up with in the office.
--- NOTE | 2023-04-26 10:23 | P.CNNES ---
History of Present Illness Consult date: 04/26/23 Requesting physician: Fernanda Christopher Reason for Consult: lower extremity spasm History of Present Illness: This is a 28-year-old woman with history of high functional intellectual disability, who had left nephrectomy on 04/17/2023 presented to the emergency department because of the chest discomfort. Neurology is consulted for lower extremity spasm. Some of the history is obtained from the patient mother was at bedside. According to the mother patient does not have any history of seizure but since she had the left nephrectomy she's been having chest pain since this past Friday. Also she's been having lower extremity spasm that is intermittent lasting between 5-11 minutes. It seems during these episodes the patient has involuntary movement of lower extremity but she is awake alert responding. Upon asking the patient if she notices any auras prior to episode she states no but then her mother states no she the has chest pain prior to episode and the patient states that yes. She did have multiple episodes in a day according to the mother. Mother states that she had an episode where she lost urine 1 time. No bowel incontinence, no tongue bite. Patient states that these episodes somewhat better with pain medications. Again no history of seizure. She states that the SI her mother is not at bedside she feels more anxious. She cannot tell me she is having more anxiety or any stress recently. Patient does not have any history of seizures. Patient is adopted and does not know her history or any family history. Patient resides by herself and is highly functional. Some other workup during his hospital visit consisted of: Troponin has been negative BUN is 30 the creatinine is 0.82. Sodium is 135. AST and ALT slightly elevated. Review of Systems Review of system: The 12 point system was reviewed and apparent positive and negative per HPI. Past Medical History Past Medical History: Hyperlipidemia, Hypertension Additional Past Medical History / Comment(s): "Mentally disabled - high functioning." Pre-diabetic. Poor vision, cannot see anything without glasses on. No menses in 2 yrs, "she just quit having them, has been checked out and not sure why." Has Nexplanon Implant. Frequent headaches. Patient was adopted from [facility], 'jaleesa think she probably has had kidney problem since . History of Any Multi-Drug Resistant Organisms: None Reported Past Surgical History: No Surgical Hx Reported Past Anesthesia/Blood Transfusion Reactions: No Reported Reaction Additional Past Anesthesia/Blood Transfusion Reaction / Comment(s): Family hx unknown, patient adopted from [facility]. Legal Guardian/Mother - Madonna states she would like to be with patient in Pre-Op but patient will be fine to go into the OR without her. Past Psychological History: Anxiety Additional Psychological History / Comment(s): Mentally diasabled - high functioning. "She just agrees with everything anyone says". Smoking Status: Never smoker Past Alcohol Use History: None Reported Past Drug Use History: None Reported - Past Family History Mother History Unknown: Yes Additional Family Medical History / Comment(s): Patient adopted from [facility], family hx unknown. Medications and Allergies Home Medications Medication Instructions Recorded Confirmed Type Atorvastatin [Lipitor] 10 mg PO HS 04/11/23 04/24/23 History Etonogestrel [Nexplanon] 68 mg SQ ONCE 04/11/23 04/24/23 History HYDROcodone/APAP 5-325MG [[place] 1 tab PO Q6HR PRN 3 Days #12 tab 04/18/23 04/24/23 Rx 5-325] Ketorolac [Toradol] 10 mg PO Q6HR PRN #15 tab 04/18/23 04/24/23 Rx lisinopriL [Zestril] 10 mg PO DAILY 04/24/23 04/24/23 History Cyclobenzaprine [Flexeril] 5 mg PO TID PRN 10 Days #30 tablet 04/25/23 Rx Allergies Allergy/AdvReac Type Severity Reaction Status Date / Time No Known Allergies Allergy Verified 04/24/23 14:30 Physical Examination - Vital Signs Vital Signs: Vital Signs Temp Pulse Resp BP Pulse Ox 04/26/23 07:00 98 F 85 18 114/75 96 04/26/23 00:46 98.0 F 88 18 124/79 100 04/25/23 20:54 94 112/73 96 04/25/23 19:44 97.6 F 119 H 22 151/84 98 04/25/23 15:00 98.2 F 119 H 20 152/83 99 Intake and Output 04/25/23 04/26/23 04/26/23 22:59 06:59 14:59 Intake Total 120 222 Balance 120 222 Intake: Oral 120 222 Other: # Voids 1 1 GENERAL: The patient is lying in bed and is not in acute distress. NEUROLOGICAL: Higher mental function: The patient is awake, alert, oriented to self, place and time. Patient is following commands. No aphasia and no neglect. Cranial nerves: The pupils are round, equal and reactive to light. Visual traylor are full to confrontation throughout. Extraocular movement is intact no nystagmus is noted. The facial strength is normal throughout. Hearing is normal bilaterally to hand rub. Tongue is midline and moved [id number] without any difficulty. No dysarthria is noted. Shoulder shrug is normal bilaterally. Motor: The strength is 5 over 5 throughout. Normal tone and bulk. Cerebellum: Normal finger to nose bilaterally. Sensation: Sensation is normal to touch throughout. Reflexes (right/left): 2+ Plantars are downgoing bilaterally. Then all of a sudden the patient had her typical episode that the mother and the patient was describing: She had nonrhythmic shaking of lower extremity that was intermittent and was waxing and waning and she was responding during the episode and she had her right hand over her chest. The episode resolved immediately and it would come back again was at nonrhythmic lasting few seconds would resolve then come back. I had to come the patient. No foaming around the mouth, no fixed gaze. Results - Laboratory Findings CBC and BMP: 04/26/23 05:54 04/26/23 05:54 Abnormal Lab Findings: Abnormal Labs 04/24/23 04/24/23 04/24/23 13:46 13:46 13:46 RDW 11.3 L APTT 19.9 L D-Dimer Sodium 135 L Carbon Dioxide 20 L BUN 30 H BUN/Creatinine Ratio Glucose 123 H AST 45 H ALT 66 H Alkaline Phosphatase 145 H C-Reactive Protein Albumin/Globulin Ratio Triglycerides 04/24/23 04/24/23 04/26/23 13:51 23:14 05:54 RDW 11.1 L APTT D-Dimer 10.43 H Sodium Carbon Dioxide BUN BUN/Creatinine Ratio Glucose AST ALT Alkaline Phosphatase C-Reactive Protein Albumin/Globulin Ratio Triglycerides 170.00 H 04/26/23 05:54 RDW APTT D-Dimer Sodium Carbon Dioxide BUN BUN/Creatinine Ratio 22.89 H Glucose 122 H AST ALT 50 H Alkaline Phosphatase 132 H C-Reactive Protein 1.90 H Albumin/Globulin Ratio 1.30 L Triglycerides Assessment and Plan Assessment: This is a 28-year-old woman that is highly functional intellectual disability who had left nephrectomy on 04/17/2023 and then since this past Friday has been having chest pain and involuntary shaking of lower extremity. Mother states t hat pain medications somewhat help resolve these episodes. I personally witnessed the episode today while examining the patient and it was nonrhythmic and she was responding and was lasting for seconds then would resolve then would come back again. Her nonrhythmic shaking of lower extremity: I feel it's seems nonepileptic seizures (personally witnessed the episode and patient was responding. Episode was seconds then resolved then come back again). Unsure if patient has underlying anxiety or stressors. Atypical Chest pain Recent nephrectomy Highly functional intellectual disability Patient is adopted and unknown history and family history Plan: I ordered a stat EEG. I ordered CT of brain without. I'll not start the patient on antiepileptic drugs unless the EEG is relevant for seizure or discharges. Ordered TSH, lactic acid vena prolactin level. Recommend patient to follow-up with psychiatry team as an outpatient Cardiology is on board We'll defer the rest of the medical management to primary team. Recommend the patient to follow-up with a neurologist as an outpatient within 1- 2 weeks. The plan discussed with the patient, her mother was at bedside and her nurse Thank you for the consultation Time with Patient: Greater than 30
--- NOTE | 2023-04-26 10:44 | CT ---
EXAMINATION TYPE: CT brain wo con CT DLP: 775.5 mGycm, Automated exposure control for dose reduction was used. DATE OF EXAM: 04/26/2023 10:37 AM COMPARISON: CTA head 02/11/2023 CLINICAL INDICATION:Female, 28 years old with history of involuntary tremor., Tremors. TECHNIQUE: Brain: Multiple axial CT images of the brain were obtained without IV contrast. Coronal and sagittal reformats reviewed. FINDINGS: Brain: Extra-axial spaces: No abnormal extra-axial fluid collections. Ventricular system: Within normal limits Cerebral parenchyma: No acute intraparenchymal hemorrhage or mass effect. The gilmore-white junction is well differentiated. Cerebellum: Unremarkable. Mass effect: No evidence of midline shift. Intracranial vasculature: unremarkable Soft tissues: Normal. Calvarium/osseous structures: No depressed skull fracture. Paranasal sinuses and mastoid air cells: Clear Visualized orbits: Orbital contents are intact. IMPRESSION: No acute intracranial process.
--- NOTE | 2023-04-26 10:49 | P.HPIM ---
History of Present Illness H&P Date: 04/24/23 Chief Complaint: Chest discomfort 28-year-old female, history of hypertension, hyperlipidemia, presenting to the emergency department with family with concerns for chest discomfort. Patient did have left nephrectomy secondary to cysts last week. Patient did have some chest discomfort described as spasms 2 days ago that were short. Patient did have some yesterday as well. Patient has had 1 lasting over an hour now today. Discomfort is in her mid sternal chest. It does seem to radiate. Patient denies dyspnea. Patient has been reported as sweaty. Patient is slightly poor historian and foster mother helps provide history. Blood work completed in ED reveals WBC of 9.0, hemoglobin of 13.5 and platelet count of 352, sodium 135, potassium 4.4, BUN/creatinine of 30/0.8 and blood glucose of 123, AST/ALT elevated at 45/66, d-dimer elevated at 10.43 with troponin of less than 0.012 -- CTA chest is negative for PE; CT of the abdomen and pelvis reveals left nephrectomy with changes likely representing seroma; some postsurgical changes anterior abdominal Review of Systems REVIEW OF SYSTEMS: CONSTITUTIONAL: No fever, no malaise, no fatigue. HEENT: No recent visual problems or hearing problems. Denied any sore throat. CARDIOVASCULAR: Complains of chest pain, orthopnea, PND, no palpitations, no syncope. PULMONARY: No shortness of breath, no cough, no hemoptysis. GASTROINTESTINAL: No diarrhea, no nausea, no vomiting, no abdominal pain. NEUROLOGICAL: No headaches, no weakness, no numbness. HEMATOLOGICAL: Denies any bleeding or petechiae. GENITOURINARY: Denies any burning micturition, frequency, or urgency. MUSCULOSKELETAL/RHEUMATOLOGICAL: Denies any joint pain, swelling, or any muscle pain. ENDOCRINE: Denies any polyuria or polydipsia. The rest of the 14-point review of systems is negative. Past Medical History Past Medical History: Hyperlipidemia, Hypertension Additional Past Medical History / Comment(s): "Mentally disabled - high functioning." Pre-diabetic. Poor vision, cannot see anything without glasses on. No menses in 2 yrs, "she just quit having them, has been checked out and not sure why." Has Nexplanon Implant. Frequent headaches. Patient was adopted from [facility], 'jaleesa think she probably has had kidney problem since . History of Any Multi-Drug Resistant Organisms: None Reported Past Surgical History: No Surgical Hx Reported Past Anesthesia/Blood Transfusion Reactions: No Reported Reaction Additional Past Anesthesia/Blood Transfusion Reaction / Comment(s): Family hx unknown, patient adopted from [facility]. Legal Guardian/Mother - Madonna states she would like to be with patient in Pre-Op but patient will be fine to go into the OR without her. Past Psychological History: Anxiety Smoking Status: Never smoker Past Alcohol Use History: None Reported Past Drug Use History: None Reported - Past Family History Mother History Unknown: Yes Additional Family Medical History / Comment(s): Patient adopted from [facility], family hx unknown. Medications and Allergies Home Medications Medication Instructions Recorded Confirmed Type Atorvastatin [Lipitor] 10 mg PO HS 04/11/23 04/24/23 History Etonogestrel [Nexplanon] 68 mg SQ ONCE 04/11/23 04/24/23 History HYDROcodone/APAP 5-325MG [[place] 1 tab PO Q6HR PRN 3 Days #12 tab 04/18/23 04/24/23 Rx 5-325] Ketorolac [Toradol] 10 mg PO Q6HR PRN #15 tab 04/18/23 04/24/23 Rx lisinopriL [Zestril] 10 mg PO DAILY 04/24/23 04/24/23 History Cyclobenzaprine [Flexeril] 5 mg PO TID PRN 10 Days #30 tablet 04/25/23 Rx Allergies Allergy/AdvReac Type Severity Reaction Status Date / Time No Known Allergies Allergy Verified 04/24/23 14:30 Physical Exam Vitals: Vital Signs Temp Pulse Pulse Resp BP Pulse Ox 04/24/23 20:15 105 H 17 114/84 100 04/24/23 19:06 107 H 18 106/65 95 04/24/23 18:40 92 17 129/76 04/24/23 18:03 109 H 17 110/66 97 04/24/23 17:00 98.5 F 98 18 113/64 100 04/24/23 14:37 78 21 127/76 99 04/24/23 13:34 86 04/24/23 13:30 98.0 F 84 22 134/84 97 Intake and Output 04/24/23 04/24/23 04/24/23 06:59 14:59 22:59 Other: Weight 100.698 kg PHYSICAL EXAMINATION: GENERAL: The patient is alert and oriented x3, not in any acute distress. Well developed, well nourished. HEENT: Pupils are round and equally reacting to light. EOMI. No scleral icterus. No conjunctival pallor. Normocephalic, atraumatic. No pharyngeal erythema. No thyromegaly. CARDIOVASCULAR: S1 and S2 present. No murmurs, rubs, or gallops. PULMONARY: Chest is clear to auscultation, no wheezing or crackles. ABDOMEN: Soft, nontender, nondistended, normoactive bowel sounds. No palpable organomegaly. MUSCULOSKELETAL: No joint swelling or deformity. EXTREMITIES: No cyanosis, clubbing, or pedal edema. NEUROLOGICAL: Gross neurological examination did not reveal any focal deficits. SKIN: No rashes. Results CBC & Chem 7: 04/26/23 05:54 04/26/23 05:54 Labs: Abnormal Lab Results - Last 24 Hours (Table) 04/24/23 04/24/23 04/24/23 Range/Units 13:46 13:46 13:46 RDW 11.3 L (11.5-15.5) % APTT 19.9 L (22.0-30.0) sec D-Dimer (<0.60) mg/L FEU Sodium 135 L (137-145) mmol/L Carbon Dioxide 20 L (22-30) mmol/L BUN 30 H (7-17) mg/dL Glucose 123 H (74-99) mg/dL AST 45 H (14-36) U/L ALT 66 H (4-34) U/L Alkaline Phosphatase 145 H (38-126) U/L 04/24/23 Range/Units 13:51 RDW (11.5-15.5) % APTT (22.0-30.0) sec D-Dimer 10.43 H (<0.60) mg/L FEU Sodium (137-145) mmol/L Carbon Dioxide (22-30) mmol/L BUN (7-17) mg/dL Glucose (74-99) mg/dL AST (14-36) U/L ALT (4-34) U/L Alkaline Phosphatase (38-126) U/L Assessment and Plan Assessment: 1. Chest pain rule out acute coronary syndrome - Patient is admitted to telemetry; monitor EKG and trend troponin - Consult cardiology for further evaluation 2. Recent nephrectomy secondary to cystic nephroma; CT of abdomen and pelvis is reviewed; urology is consulted 3. Hypertension; lisinopril 10 mg daily 4. Hyperlipidemia; Lipitor 10 mg by mouth daily at bedtime; AST/ALT are mildly elevated; patient will need close monitoring of liver enzymes as outpatient CODE STATUS; full code
--- NOTE | 2023-04-26 10:51 | P.DS ---
Providers Date of admission: 04/24/23 17:30 Expected date of discharge: 04/25/23 Attending physician: Fernanda Christopher MD Consults: 04/24/23 17:30 Consult Physician Routine Consulting Provider: Jarrell Montesinos Consult Reason/Comments: post op Do you want consulting provider notified?: Yes Primary care physician: [facility] Course: 28-year-old female, history of hypertension, hyperlipidemia, presenting to the emergency department with family with concerns for chest discomfort. Patient did have left nephrectomy secondary to cysts last week. Patient did have some chest discomfort described as spasms 2 days ago that were short. Patient did have some yesterday as well. Patient has had 1 lasting over an hour now today. Discomfort is in her mid sternal chest. It does seem to radiate. Patient denies dyspnea. Patient has been reported as sweaty. Patient is slightly poor historian and foster mother helps provide history. Blood work completed in ED reveals WBC of 9.0, hemoglobin of 13.5 and platelet count of 352, sodium 135, potassium 4.4, BUN/creatinine of 30/0.8 and blood glucose of 123, AST/ALT elevated at 45/66, d-dimer elevated at 10.43 with tropo gab of less than 0.012 -- CTA chest is negative for PE; CT of the abdomen and pelvis reveals left nephrectomy with changes likely representing seroma; some postsurgical changes anterior abdominal Patient has been evaluated by cardiology and no further workup is recommended Patient's foster mother at bedside and concerned about previous diagnosis of lead poisoning; patient is recommended follow-up with primary care physician for any further workup residential designer is concerned about continuing muscle spasms in the chest; patient is placed on Flexeril 5 mg 3 times a day when necessary -- Patient is stable for discharge Patient Condition at Discharge: Stable Plan - Discharge Summary New Discharge Prescriptions: New Cyclobenzaprine [Flexeril] 5 mg PO TID PRN 10 Days #30 tablet PRN Reason: Muscle Spasm Continue Atorvastatin [Lipitor] 10 mg PO HS Etonogestrel [Nexplanon] 68 mg SQ ONCE HYDROcodone/APAP 5-325MG [[place] 5-325] 1 tab PO Q6HR PRN 3 Days #12 tab PRN Reason: Pain Ketorolac [Toradol] 10 mg PO Q6HR PRN #15 tab PRN Reason: Pain lisinopriL [Zestril] 10 mg PO DAILY Discharge Medication List Atorvastatin [Lipitor] 10 mg PO HS 04/11/23 [History] Etonogestrel [Nexplanon] 68 mg SQ ONCE 04/11/23 [History] HYDROcodone/APAP 5-325MG [[place] 5-325] 1 tab PO Q6HR PRN 3 Days #12 tab 04/18/23 [Rx] Ketorolac [Toradol] 10 mg PO Q6HR PRN #15 tab 04/18/23 [Rx] lisinopriL [Zestril] 10 mg PO DAILY 04/24/23 [History] Cyclobenzaprine [Flexeril] 5 mg PO TID PRN 10 Days #30 tablet 04/25/23 [Rx] Follow up Appointment(s)/Referral(s): Marina Lew MD [REFERRING] - 1 Week Francis Araujo MD [STAFF PHYSICIAN] - 1 Week Leonarda De La Cruz MD [Primary Care Provider] - 1-2 days Discharge Disposition: HOME SELF-CARE
--- NOTE | 2023-04-26 13:39 | EEG ---
ELECTROENCEPHALOGRAM REPORT CLINICAL HISTORY: This is a 28-year-old woman who has been having intermittent shaking of her lower extremities since this past Friday. The video EEG is obtained to evaluate for seizure epileptiform activity. RELEVANT MEDICATION: The patient is on Flexeril. EEG TYPE: A routine 21-channel EEG performed with video using the 10/20 electrode placement system. DESCRIPTION: And wakefulness are obtained. During awake state, the background consists of low to moderate voltage of 11-12 hertz activity. There is no physiological stage 2 sleep architecture. There is no focal slowing. INTERICTAL AND ICTAL: During the study, the patient had multiple jerking of her legs. There is no epileptiform discharges or ictal associated with these episodes. Electrographically, she had a brief diffuse myogenic artifact followed by 11 to 12 hertz activity and again, no discharges or ictal activity noted during the study. One of examples, is at 11:57am of recording, clinically patient right hand is holding on to her mother's hand while left hand is placed on her chest. Again, these are nonepileptic in nature. ACTIVATION PROCEDURE: Photic stimulation is performed and there is no photic driving or abnormality during the photic stimulation. Hyperventilation is not performed. CLINICAL CORRELATION: This is a normal routine EEG. There is no focal slowing, epileptiform discharge or seizure on the EEG. The patient typical events were captured during this study and are nonepileptic in nature/psychogenic nonepileptic seizures (PNES). Clinical correlation is recommended. KHARI / CARMELO: [id number] / MTDD
[2023-04-26] MEDS: ATORVASTATIN 10 MG TAB PO SCH (20:05)
[2023-04-27 07:42] VITALS: BP 123/85; PULSE 80; RESP 18; TEMP 97.7
--- NOTE | 2023-04-27 07:57 | P.PN ---
Subjective Progress Note Date: 04/26/23 28-year-old female, history of hypertension, hyperlipidemia, presenting to the emergency department with family with concerns for chest discomfort. Patient did have left nephrectomy secondary to cysts last week. Patient did have some chest discomfort described as spasms 2 days ago that were short. Patient did have some yesterday as well. Patient has had 1 lasting over an hour now today. Discomfort is in her mid sternal chest. It does seem to radiate. Patient denies dyspnea. Patient has been reported as sweaty. Patient is slightly poor historian and foster mother helps provide history. Blood work completed in ED reveals WBC of 9.0, hemoglobin of 13.5 and platelet count of 352, sodium 135, potassium 4.4, BUN/creatinine of 30/0.8 and blood glucose of 123, AST/ALT elevated at 45/66, d-dimer elevated at 10.43 with troponin of less than 0.012 -- CTA chest is negative for PE; CT of the abdomen and pelvis reveals left nephrectomy with changes likely representing seroma; some postsurgical changes anterior abdominal 04/26/2023 Patient is seen and evaluated in room at bedside; patient's foster mother is present in the room; patient discharge was held yesterday for questionable seizure activity involving both legs; neurology was consulted -- Patient has been evaluated and cleared for discharge by cardiology service - Urology evaluated patient and no further evaluation or treatment was recommended Neurology was consulted for concern about jerky movements were scored extremities to rule out seizure activity; episode was witnessed by the neurologist at bedside which was nontender make and patient was responding during the episode; the episode which resolved within a few seconds and would recur; episode was felt to be nonepileptic seizure triggered by questionable underlying anxiety or stressors; a CT of the brain and stat EEG were ordered along with TSH, lactic acid and prolactin levels- all of the blood work was unremarkable and was discussed with patient and mother at bedside -- EEG was normal with no focal slowing or epileptiform discharge or seizure; patient's episode was captured during EEG and had been nonepileptic - CT of the brain is negative for any acute process - Patient discussed with neurology and no further workup was recommended All of the chest results and consultants recommendations were discussed with patient and foster mother at bedside; recommend possible follow-up with neurology as an outpatient; patient's foster mother however he refuses to take patient home stating that she is unable to care for her at home; family initially recommended patient to be transferred to a tertiary care center for further workup and higher level of care; I did explain to patient's foster mother that higher level of care is not recommended at this time and patient can be safely discharged home and follow up with primary care physician for possible referral for other facilities as family and PCP deemed necessary - Patient's foster mother is refusing to take patient home and demanding patient be seen by psychiatry while inpatient; psych consult has been placed Objective - Vital Signs Vital signs: Vital Signs Temp 98 F 04/26/23 07:00 Pulse 85 04/26/23 07:00 Resp 18 04/26/23 07:00 BP 114/75 04/26/23 07:00 Pulse Ox 96 04/26/23 07:00 FiO2 Intake & Output 04/25/23 04/26/23 04/26/23 18:59 06:59 18:59 Intake Total 360 222 Balance 360 222 Intake: Oral 360 222 Other: # Voids 2 1 # Bowel Movements 0 - Exam PHYSICAL EXAMINATION: GENERAL: The patient is alert and oriented x3, not in any acute distress. Well developed, well nourished. HEENT: Pupils are round and equally reacting to light. EOMI. No scleral icterus. No conjunctival pallor. Normocephalic, atraumatic. No pharyngeal erythema. No thyromegaly. CARDIOVASCULAR: S1 and S2 present. No murmurs, rubs, or gallops. PULMONARY: Chest is clear to auscultation, no wheezing or crackles. ABDOMEN: Soft, nontender, nondistended, normoactive bowel sounds. No palpable organomegaly. MUSCULOSKELETAL: No joint swelling or deformity. EXTREMITIES: No cyanosis, clubbing, or pedal edema. NEUROLOGICAL: Gross neurological examination did not reveal any focal deficits. SKIN: No rashes. - Labs CBC & Chem 7: 04/26/23 05:54 04/26/23 05:54 Labs: Abnormal Lab Results - Last 24 Hours (Table) 04/26/23 04/26/23 Range/Units 05:54 05:54 RDW 11.1 L (11.5-14.5) % BUN/Creatinine Ratio 22.89 H (12.00-20.00) Ratio Glucose 122 H (70-110) mg/dL ALT 50 H (8-44) U/L Alkaline Phosphatase 132 H (41-126) U/L C-Reactive Protein 1.90 H (0.00-0.80) mg/dL Albumin/Globulin Ratio 1.30 L (1.60-3.17) Ratio Assessment and Plan Assessment: 1. Chest pain rule out acute coronary syndrome - Patient is admitted to telemetry; monitor EKG and trend troponin - Consult cardiology for further evaluation 2. Recent nephrectomy secondary to cystic nephroma; CT of abdomen and pelvis is reviewed; urology is consulted 3. Hypertension; lisinopril 10 mg daily 4. Hyperlipidemia; Lipitor 10 mg by mouth daily at bedtime; AST/ALT are mildly elevated; patient will need close monitoring of liver enzymes as outpatient CODE STATUS; full code
[2023-04-27] MEDS: lisinopriL 10 MG TAB PO SCH (08:08)
--- NOTE | 2023-04-27 10:09 | P.PN ---
Subjective Progress Note Date: 04/27/23 The patient is seen at bedside and she states that she stated that she is having pain in the abdominal region on the right side left side middle the chest. She states that the she thinks she had an episode today in the morning of seizure- like activity. Upon asking the nurse she stated that she did not have any further episodes overnight and is seems that the patient mother was not at bedside overnight. She received one time [place] overnight but otherwise was uneventful. Objective - Vital Signs Vital signs: Vital Signs Temp 97.7 F 04/27/23 07:00 Pulse 80 04/27/23 07:00 Resp 18 04/27/23 07:00 BP 123/85 04/27/23 07:00 Pulse Ox 96 04/27/23 07:00 FiO2 Intake & Output 04/26/23 04/27/23 04/27/23 18:59 06:59 18:59 Intake Total 460 120 Balance 460 120 Intake: Oral 460 120 Other: # Voids 3 2 1 - Exam GENERAL: The patient is lying in bed and is not in acute distress. NEUROLOGICAL: Higher mental function: The patient is awake, alert, oriented to self, place and time. Patient is following commands. No aphasia and no neglect. Cranial nerves: The pupils are round, equal and reactive to light. Visual traylor are full to confrontation throughout. Extraocular movement is intact no nystagmus is noted. The facial strength is normal throughout. Hearing is normal bilaterally to hand rub. Tongue is midline and moved [id number] without any difficulty. No dysarthria is noted. Shoulder shrug is normal bilaterally. Motor: The strength is 5 over 5 throughout. Normal tone and bulk. Cerebellum: Normal finger to nose bilaterally. Sensation: Sensation is normal to touch throughout. Reflexes (right/left): 2+ Plantars are downgoing bilaterally. Some other workup during his hospital visit consisted of: Troponin has been negative BUN is 30 the creatinine is 0.82. Sodium is 135. Plasma lactic acid vein is 0.9, prolactin level is 9.4 both are within normal limits. TSH is 0.967 AST and ALT slightly elevated. CT of the brain is reported as no acute intracranial process. I personally reviewed the CT and agree report. Routine EEG is normal. There is no focal slowing, epileptiform discharges or seizure on the EEG. The patient typical events were captured during the study and are nonepileptic in nature and (nonepileptic seizures). Cold to correlation is recommended - Labs CBC & Chem 7: 04/26/23 05:54 04/26/23 05:54 Assessment and Plan Assessment: This is a 28-year-old woman that is highly functional intellectual disability who had left nephrectomy on 04/17/2023 and then since this past Friday has been having chest pain and involuntary shaking of lower extremity. Mother states that pain medications somewhat help resolve these episodes. I personally witnessed the episode today while examining the patient and it was nonrhythmic and she was responding and was lasting for seconds then would resolve then would come back again. Psychogenic nonepileptic seizures. Her nonrhythmic shaking of lower extremity does not seems clinically epileptic as well EEG captured episodes and were nonepileptic in nature. Unsure if patient has underlying anxiety or stressors. Atypical Chest pain Recent nephrectomy Highly functional intellectual disability Patient is adopted and unknown history and family history Plan: Again the EEG was normal. The events were captured during the EEG are no nepileptic in nature/psychogenic nonepileptic seizures (PNES). I'll not start the patient on antiepileptic drugs since those events are non- epileptic. Follow-up with a neurologist as an outpatient and can consider long- term EEG as an outpatient if her neurologist desires to capture more episodes to rule out epileptic seizures in addition to nonepileptic. Psychiatry team is consulted. Cardiology is on board We'll defer the rest of the medical management to primary team. Recommend the patient to follow-up with a neurologist and psychiatrist as an outpatient within 1-2 weeks. Because of seizures according to the [place] [employer], to avoid driving for 6 month until seizure-free, avoid heights, avoids wearing gauzes and and using heavy machinery. The plan discussed with the patient and her nurse. There is no additional neurological work-up. Please notify neurology team if any further concerns. Time with Patient: Less than 30
[2023-04-27] MEDS ORDERED: clonazePAM 0.5 MG TAB PO PRN (11:33)
[2023-04-27] MEDS ORDERED: ESCITALOPRAM 10 MG TAB PO SCH (11:45)
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
[2023-04-27 13:43] LABS: Blood Urea Nitrogen 19.8 mg/dL (9.0-27.0); Carbon Dioxide 19.7 mmol/L (21.6-31.8); Chloride 103 mmol/L (96-109); Glucose 115 mg/dL (70-110); Potassium 4.7 mmol/L (3.5-5.5); Sodium 137 mmol/L (135-145)
== END 2023-04-27 15:40 | disposition home or self-care (01) ==
LOC: EC 13:16 → 6NMEDSUR 17:30
PROVIDERS: ADMIT Internal Medicine; ATTEND Internal Medicine
DX: R07.89 Other chest pain (principal); E78.5 Hyperlipidemia, unspecified; I10 Essential (primary) hypertension; H54.7 Unspecified visual loss; F41.9 Anxiety disorder, unspecified; I37.1 Nonrheumatic pulmonary valve insufficiency; R73.03 Prediabetes; F79 Unspecified intellectual disabilities; F32.A Depression, unspecified; F41.0 Panic disorder [episodic paroxysmal anxiety]; F44.5 Conversion disorder with seizures or convulsions; Z79.899 Other long term (current) drug therapy; Z90.5 Acquired absence of kidney; Z85.528 Personal history of other malignant neoplasm of kidney; Z62.810 Personal history of physical and sexual abuse in childhood
CPT/HCPCS: 96376 ×2; 96375 ×2; 96374; 99285; 36415; 95816; 93005; 93306; 85379; 80061; 80053 ×2; 80048; 84443; 82728; 82150; 83605; 83690; 83735; 84484; 85025 ×2; 85610; 85730; 86140; 84146; 71046; 70450; 71275; 74177; G0378 ×4; J2060; J2270; J1170; Q9967

== ENCOUNTER → 2023-09-03 | Outpatient (CLI) | payer MEDICARE, OTHER ==
--- NOTE | 2023-09-05 08:30 | MR ---
EXAMINATION TYPE: MR brain wo con DATE OF EXAM: 09/03/2023 COMPARISON: CT brain 04/26/2023 HISTORY: Seizures. CONTRAST: Performed utilizing 0 mL intravenous Gadavist gadolinium contrast. TECHNIQUE: Multiplanar, multiecho imaging on a 3.0 Yamila magnet is performed through the brain. Stud y is performed within 24 hours of arrival to the hospital. The craniovertebral junction is normal. The pituitary is normal. Optic chiasm as visualized is norm al. Diffusion-weighted imaging is performed. No abnormal hyperintensity is present to suggest an acute i ntracranial infarct or acute ischemic change. There is a punctate subcortical white matter change in left basal ganglion. This is nonspecific but c ould be related to microvascular ischemic change. Migraine headaches should be considered. This is no t out of proportion to age. Ventricles and sulci are appropriate for the patient age. IMPRESSION: 1. No acute intracranial process. 2. Solitary very tiny white matter change left subcortical basal ganglion region not out of proportio n to the patient's age. Consider migraine headaches and chronic microvascular ischemic changes within the differential.
== END | disposition home or self-care (01) ==
LOC: RADMRIMAIN 11:45
PROVIDERS: ATTEND Family Medicine
DX: G40.909 Epilepsy, unspecified, not intractable, without status epilepticus (principal); G93.89 Other specified disorders of brain
CPT/HCPCS: 70551